=== PATIENT | female | born 1950 | race Caucasian/White ===

== ENCOUNTER 2018-03-08 06:59 | Observation (INO) | payer MEDICARE, BC ==
--- NOTE | 2018-02-24 12:04 | HP ---
HISTORY AND PHYSICAL: DATE OF ADMISSION/SURGERY: 03/08/18 DATE OF OFFICE VISIT: 02/23/18 SURGEON: Mikala Terry MD * (DICTATED BY TISH AVILA) PROCEDURE: Left total knee arthroplasty. CHIEF COMPLAINT: Left knee pain. HISTORY OF PRESENT ILLNESS: Ms. Caballero is a 68-year-old female with continued complaints of left knee pain. She has failed conservative treatment and elected to proceed with a left total knee arthroplasty. PAST MEDICAL HISTORY: Hypothyroidism and high cholesterol. PAST SURGICAL HISTORY: Right knee arthroscopy. CURRENT MEDICATIONS: 1. Synthroid 125 mcg daily. 2. Atorvastatin calcium 10 mg daily. 3. Vitamin D. 4. Vitamin B12. ALLERGIES: ACULAR and NSAIDs, causing hives. FAMILY HISTORY: Coronary artery disease, hypertension, and COPD. SOCIAL HISTORY: She is a 68-year-old female. She lives alone. She does not smoke or use drugs. Uses occasional alcohol. REVIEW OF SYSTEMS: A complete 14-point review of systems was reviewed with the patient. It was positive for hypothyroidism. She denies history of DVT, PE, hepatitis, HIV, or anesthesia problems. PHYSICAL EXAMINATION GENERAL: She is well developed, well nourished, in no acute distress. VITAL SIGNS: She stands 64 inches tall, weighs 184 pounds. Her blood pressure is 134/88, her heart rate is 76. HEENT: Normocephalic, atraumatic. NECK: Supple. No palpable lymph nodes. PULMONARY: Lungs are clear to auscultation bilaterally. CARDIAC: Regular rate and rhythm. Strong S1, S2. ABDOMEN: Soft, nontender, nondistended. NEUROLOGICAL: She is alert and oriented x3. MUSCULOSKELETAL: Left lower extremity, the skin is intact. There are no wounds or abrasions. There is a moderate joint effusion. She has some tenderness over the medial and lateral joint line. She walks with an antalgic- type gait, favoring her left leg. She has a 2+ dorsalis pedis pulse, intact sensation, and her lower extremity muscle group strengths are intact at 5/5. ASSESSMENT AND PLAN: Ms. Caballero is a 68-year-old female with continued complaints of left knee pain. She has failed conservative treatment and elected to proceed with a left total knee arthroplasty. The surgery is scheduled for 03/08/[address] Terry discussed the risks and benefits of this surgery at today's visit and all of her questions were answered. She will follow up with Dr. Terry 2 weeks after the surgery. TISH AVILA [id number]/CPS #: [id number] MTDD
[~2018-03-08 06:59] MED LIST: Acetaminophen IV 1GM/100ML * 1,000 MG/100 ML VIAL IVPB ONE; Buffered Lidocaine 1% SYRIN* 1 ML/SYRINGE INTRADERM ONE; Dexamethasone TAB* 4 MG PO ONE; Famotidine IV* 10 MG/ML 2 ML (20 mg) IV ONE; Gabapentin CAP(*) 300 MG PO ONE; Tranexamic Acid 1,000 MG in NS 0.9% 50 ML* (outpatient use) IV SCH
--- OUTSIDE RECORDS SUMMARY | 2018-03-08 07:04 | XMS REPORT | Continuity of Care Document ---
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 Maya Hanley PA-C Primary Care Physician Unavailable Payers Type Date Identification Numbers Payment Provider Subscriber Policy Number: [id number] Medicare Rand Crystal PayID: [id number] [address] [place] [address] Policy Number: [id number] [facility] Rand Crystal PayID: [id number] [address] [address] [place] [address] Advance Directives Description No Information Available Problems Date Description Provider Status Onset: 02/23/2018 Hyperlipidemia Gerson Bhatia Active M.D., [facility] Onset: 02/23/2018 Preoperative cardiovascular Gerson Bhatia Active examination Valentina, [facility] Onset: 02/23/2018 Electrocardiogram abnormal Gerson Bhatia Active M.D., [facility] Family History Date Family Member(s) Problem(s) Comments Father due to [place] () - age 54 Father due to Hypertension () Social History Type Date Description Comments Sex Unknown Diet Healthy, Well Balanced 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 Independent with all ADL's Tobacco Use Start: Unknown Never Smoked Cigarettes Smoking Status Reviewed: 02/23/18 Never Smoked Cigarettes ETOH Use Occasionally consumes alcohol Allergies, Adverse Reactions, Alerts Date Description Reaction Status Severity Comments 02/23/2018 Acular Active 02/23/2018 NSAIDs Active 03/15/2008 NKDA Inactive Medications Medication Date Status Form Strength Qnty SIG Indications Ordering Provider Vitamin E Active 1 by Unknown 00 mouth every day Vitamin D Active 1 by Unknown 00 mouth every day Lipitor Active Tablets 10mg 1 by Unknown 00 mouth every day Synthroid Active Tablets 125mcg 1 by Unknown 00 mouth every day Vitamin B-12 Active Tablets Sub 500mcg 1 by Unknown 00 mouth every day Lipitor Hx Tablets 1 by Unknown 00 mouth every day Synthroid Hx Unknown - 02/23/19 19 Multi-Vitamin Hx 1 by Unknown 00 mouth every day Immunizations Description No Information Available Vital Signs Date Vital Result Comment 02/23/2018 12:55pm BP Systolic Sitting Right Arm 130 mmHg BP Diastolic Sitting Right Arm 86 mmHg Heart Rate 72 /min Respiratory Rate 18 /min Weight 184.00 lb O2 % BldC Oximetry 97 % Ora Results Description No Information Available Procedures Date Code Description Status 02/23/2018 45975 EKG-Tracing And Report Completed Encounters Type Date Location Provider Dx Diagnosis Office Visit 02/23/2018 Cardiology Office Janeth Bhatia94.31 Abnormal 1:00p shorty Alvarez [JENNIFER] Valentina, FACC [EKG] Z01.810 Encounter for preprocedural cardiovascular examination E78.5 Hyperlipidemia, unspecified Office Visit 04/16/2008 2:45p Orthopaedic Office Janay Bianchi 845.00 Loree MD Strains Ankle Unspec Site Office Visit 03/15/2008 3:15p Orthopaedic Office Janay Bianchi 845.00 Loree MD Strains Ankle Unspec Site Office Visit 02/22/2008 10:00a Orthopaedic Office Janay Bianchi 845.00 Loree MD Strains Ankle Unspec Site Plan of Treatment Future Appointment(s):04/12/2018 1:00 pm - Juan Manuel Marks DPM at Podiatry Kqykwo0602/23/2018 - Gerson Bhatia M.D., FACCR94.31 Abnormal electrocardiogram [ECG] [EKG]New Orders:Echocardiogram, Scheduled: Lexiscan, Scheduled: 03/02/18Comments:She will have an echo to determine LVF and wall motion. In addition, she will have Lexiscan to determine if she has ischemia. She will call to discuss the results.Z01.810 Encounter for preprocedural cardiovascular examinationComments:We will complete the clearance evaluation with a Lexiscan.E78.5 Hyperlipidemia, unspecifiedComments:Will continue with statinsAllFollow up:Follow up with us on a PRN basis.
--- OUTSIDE RECORDS SUMMARY | 2018-03-08 07:04 | XMS REPORT | Continuity of Care Document ---
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 Maya Hanley PA-C Primary Care Physician Unavailable Payers Type Date Identification Numbers Payment Provider Subscriber Policy Number: [id number] Medicare Rand Crystal PayID: [id number] [address] [place] [address] Policy Number: [id number] [facility] Rand Crystal PayID: [id number] [address] [address] [place] [address] Advance Directives Description No Information Available Problems Date Description Provider Status Onset: 02/23/2018 Hyperlipidemia Gerson Bhatia Active M.D., [facility] Onset: 02/23/2018 Preoperative cardiovascular Gerson Bhatia Active examination MMaribell, FAC Onset: 02/23/2018 Electrocardiogram abnormal Gerson Bhatia Active M.D., [facility] Family History Date Family Member(s) Problem(s) Comments Father due to [place] () - age 54 Father due to [...] Available Procedures Date Code Description Status 02/23/2018 34705 EKG-Tracing And Report Completed Encounters Type Date [...] - Juan Manuel Marks DPM at Podiatry Enelpn6002/23/2018 - Gerson Bhatia M.D., [id number] Abnormal electrocardiogram [...]
--- OUTSIDE RECORDS SUMMARY | 2018-03-08 07:04 | XMS REPORT | Continuity of Care Document ---
:1950 External Reference #:[id number] Author Name Azalia Schmidt Care Team Providers Name Role Phone Bjorn Salcedo DO Primary Care Physician Unavailable Payers Type Date Identification Numbers Payment Provider Subscriber Policy Number: [id number] Medicare Beatrice Gnirsbusch PayID: [id number] [address] [place] [address] Expires: 2017 Policy Number: [id number] Medicare Beatrice Gnirsbusch PayID: [id number] [address] [place] [address] Policy Number: [id number] [facility] Rand Crystal PayID: [id number] [address] [address] [place] [address] Advance Directives Description No Information Available Problems Date Description Provider Status Onset: 08/16/2017 Localized, primary osteoarthritis Mikala Terry M.D. Active Onset: 11/03/2016 [facility] tendinitis of left shoulder Jonh Sheikh MD Active Family History Date Family Member(s) Problem(s) Comments General Heart Disease father General Hypertension father General TIAs-mother Social History Type Date Description Comments Sex Unknown Lives With Alone Occupation works on and off at [employer] ETOH Use Occasionally consumes alcohol Tobacco Use Start: Unknown End: Patient is a former smoker Unknown Smoking Status Reviewed: 02/23/18 Patient is a former smoker Exercise Type/Frequency Does not exercise Allergies, Adverse Reactions, Alerts Date Description Reaction Status Severity Comments 11/03/2016 Acular Urticaria Active Swelling eyes 12/24/2017 NSAIDS occasionally gets HIVES Active Medications Medication Date Status Form Strength Qnty SIG Indications Ordering Provider Cyclobenzaprine 02/23/ Active Tablets 10mg 90tabs take 1 Mikala HCL 2019 tab by harley Terry M.D. 2-3 times a day as needed Synthroid 00/00/ Active Tablets 124mcg 1 by Unknown 0000 mouth every day Atorvastatin 00/ Active Tablets 10mg 1 by Unknown Calcium 0000 mouth every day Vitamin D-400 00/ Active Tablets 400Unit 1 by Unknown 0000 mouth every day Bupropion HCL ER 00/ Active Tablets 150mg take 1 Unknown (Smoking Det) 0000 ER 12HR tablet by mouth once daily for 3 days then 1 tablet by mouth tw Vitamin B-12 / Active Tablets 1000mcg Unknown 0000 Ibuprofen 11/03/ Hx Tablets 600mg 90tabs 1 as Jonh 2016 - needed MD Kori 03/19/ every 8 2017 hours as needed with food Ibuprofen / Hx Tablets 600mg 90tabs 1 po Pegels, 0000 - three MD Pau 11/16/ times a 2016 day with food Medications Administered in Office Medication Date Status Form Strength Qnty SIG Indications Ordering Provider Celestone 3 mg Administered Injection Jonh and 3mg 018 MD Kori Celestone 3 mg Administered Injection Jonh and 3mg 018 MD Kori Depomedrol Administered Injection Mikala 40MG 018 Valentina Terry Depomedrol Administered Injection Mikala 40MG 018 Valentina Terry Celestone 3 mg Administered Injection Jonh and 3mg 017 MD Kori Immunizations Description No Information Available Vital Signs Date Vital Result Comment 02/23/2018 9:37am Height 64 inches 5'4" Weight 184.00 lb Heart Rate 76 /min BP Systolic 134 mmHg BP Diastolic 88 mmHg Respiratory Rate 18 /min Body Temperature 98.3 F Pain Level 4 BMI (Body Mass Index) 31.6 kg/m2 01/21/2018 9:37am Height 64.0 inches 5'4" Weight 175.00 lb BP Systolic 120 mmHg BP Diastolic 70 mmHg Pain Level 4 BMI (Body Mass Index) 30.0 kg/m2 12/24/2017 10:45am Heart Rate 80 /min BP Systolic 132 mmHg BP Diastolic 90 mmHg Respiratory Rate 18 /min Pain Level 3 10/08/2017 1:18pm Height 64 inches 5'4" Weight 175.00 lb Heart Rate 68 /min BP Systolic Sitting 124 mmHg BP Diastolic Sitting 72 mmHg Respiratory Rate 18 /min Pain Level 4 BMI (Body Mass Index) 30.0 kg/m2 09/13/2017 2:06pm Height 63.75 inches 5'3.75" Weight 175.00 lb BP Systolic 117 mmHg BP Diastolic 74 mmHg Respiratory Rate 15 /min Pain Level 2 BMI (Body Mass Index) 30.3 kg/m2 08/16/2017 1:16pm Height 63.75 inches 5'3.75" Weight 177.00 lb Heart Rate 84 /min BP Systolic Sitting 120 mmHg BP Diastolic Sitting 82 mmHg Respiratory Rate 16 /min Pain Level 2 BMI (Body Mass Index) 30.6 kg/m2 12/01/2016 10:15am Height 63.75 inches 5'3.75" Weight 185.00 lb Heart Rate 72 /min BP Systolic Sitting 108 mmHg BP Diastolic Sitting 74 mmHg Respiratory Rate 12 /min Pain Level 1 BMI (Body Mass Index) 32.0 kg/m2 11/03/2016 11:01am Height 63.75 inches 5'3.75" Weight 186.00 lb Heart Rate 85 /min BP Systolic Sitting 120 mmHg BP Diastolic Sitting 82 mmHg Respiratory Rate 16 /min Pain Level 4 O2 % BldC Oximetry 98 % BMI (Body Mass Index) 32.2 kg/m2 Results Description No Information Available Procedures Date Code Description Status 01/21/201835705 Inject/Drain Joint/Bursa Major W/O US Completed 10/08/201702325 Inject/Drain Joint/Bursa Major W/O US Completed 08/16/201709655 Inject/Drain Joint/Bursa Major W/O US Completed 11/03/2016 95318 Rad Shoulder Comp, Min. 2 Views Completed 11/03/2016 Inject/Drain Joint/Bursa Major W/O US Completed Encounters Type Date Location Provider Dx Diagnosis Office Visit 01/21/2018 Orthopedic Jayy Jaime.31 [facility] 9:15a [facility] MD tendinitis of [place] right shoulder Office Visit 12/24/2017 Orthopedic Mikala Terry, M25.561 Pain in right knee 10:45a [facility] M25.562 Pain in left knee M25.461 Effusion, right knee M25.462 Effusion, left knee M17.0 Bilateral primary osteoarthritis of knee Office Visit 10/08/2017 Orthopedic Jonh Hope.31 [facility] tendinitis 1:15p [facility] Sheikh MD of right shoulder AT [place] Office Visit 09/13/2017 Orthopedic Mikala Terry, M17.0 Bilateral primary 2:00p [facility] knee M25.462 Effusion, left knee M25.461 Effusion, right knee M25.562 Pain in left knee M25.561 Pain in right knee Office Visit 08/16/2017 1:30p [facility] Mikala Terry, M25.561 Pain in right [facility] [place] knee M25.562 Pain in left knee M25.461 Effusion, right knee M25.462 Effusion, left knee M17.0 Bilateral primary osteoarthritis of knee Office Visit 12/01/2016 9:45a [facility]opedic Jonh Hope.[place] [facility] Sheikh MD tendinitis of AT [place] left shoulder Office Visit 11/03/2016 10:30a Orthopedic Jonh Cabrera [facility] She[facility] MD tendinitis of AT [place] left shoulder M25.512 Pain in left shoulder Plan of Treatment Future Appointment(s):03/21/2018 2:00 pm - Mikala Terry M.D. at [facility]03/08/2018 11:00 am - JUSTUS Epstein at [facility]03/08/2018 11:00 am - TISH Bishop at [facility]03/08/2018 11:00 am - Mikala Terry M.D. at [facility]02/23/2018 - Mikala Terry M.D.M25.562 Pain in left kneeFollow up:Follow up: 2 weeks after iuimlupV59.462 Effusion, left kneeM17.0 Bilateral primary osteoarthritis of knee
--- OUTSIDE RECORDS SUMMARY | 2018-03-08 07:04 | XMS REPORT | Continuity of Care Document ---
:1950 External Reference #:[id number] Author Name Maya Hanley PA Address [address] [place] [address] Care Team Providers Name Role Phone Maya Hanley PA Care Team Information [employer] Unavailable Payers Type Date Identification Numbers Payment Provider Subscriber Effective: Policy Number: [id number] Medicare Rnad Crystal 2015 Group Name: [facility] [address] PayID: [id number] [place] [address] Effective: 2011 [facility]: [facility] Rand Crystal [id number] PayID: [id number] [address] [address] [place] [address] Advance Directives Description No Information Available Problems Date Description Provider Status Onset: 03/05/2010 Vitamin D deficiency Bjorn Salcedo DO Active Onset: 05/06/2004 Hypothyroidism Bjorn Salcedo DO Active Onset: 05/06/2004 Female climacteric state Bjorn Salcedo DO Active Onset: 05/06/2004 Mixed hyperlipidemia Bjorn Salcedo DO Active Family History Date Family Member(s) Problem(s) Comments Father due to Age 55 CAD/[place] () Mother due to Age 84 COPD/Emphysema () Social History Type Date Description Comments Sex Unknown Marital Status Single Lives With Alone 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 Remove with alcohol every 7 days Levothyroxine 06/17/ Active Tablets 125mcg 90tabs 1 by mouth E03.9 Moreno, Sodium 2018 every day DO Ankur Vitamin D 05/07/ Active Tablets 1000Unit 1 by mouth E55.9 Matias, 2015 every day DO Bjorn Atorvastatin 04/19/ Active Tablets 10mg 90tabs Take 1 E78.2 Josh Calcium 2015 Tablet Ankur, Daily DO Ibuprofen / Active Tablets 600mg one by Unknown 0000 mouth every 8 hours as needed with food Celecoxib 12/21/ Hx Capsules 100mg 60caps take one M25.511 Josh 2017 - capsule by Ankur, 02/21/ mouth DO 2018 twice daily as needed for pains Bupropion HCL 06/17/ Hx Tablets ER 150mg 177tab 1 tablet F17.210 Josh, ER (Smoking 2018 - 12HR s by mouth Ankur Det) 12/21/ once daily DO 2017 for 3 days then 1 tablet twice daily Levothyroxine 12/18/ Hx Tablets 112mcg 90tabs 1 by mouth E03.9 Moreno, Sodium 2015 - every day Ankur 06/17/ DO 2017 Nabumetone 05/07/ Hx Tablets 750mg 60tabs 1 by mouth M17.9 Matias, 2015 - twice a Bjorn, 06/16/ day with DO 2016 food Levothyroxine 06/14/ Hx Tablets 100mcg 90tabs 1 by mouth Matias, Sodium 2014 - every day Bjorn, 2015 Levothyroxine 04/19/ Hx Tablets 88mcg 90tabs 1 by mouth Matias, Sodium 2014 - every day Bjorn, 06/14/ DO 2014 Meclizine HCL 01/25/ Hx Tablets 25mg 60tabs 1 po q 8 Matias, 2012 - hours prn Bjorn 06/14/ dizziness DO 2014 Zostavax 12/06/ Hx Solution [id number] 1units use as Matias, 2011 - Rec .65ML directed Bjorn, 2015 Immunizations CPT Code Status Date Vaccine Reaction Lot # [id number] Given 12/21/2017 Flu Vaccine NOS [id number] Given 06/17/2017 Pneumococcal 23 Immunization [id number] Adult Or Immunosuppressed Patient [address]47[address] Given 01/29/2017 Fluzone Highdose Age 65 And [facility] [place] [address] Given 01/15/2016 Fluzone Highdose Age 65 And Given At Pharmacy Over Preservative & RA/ Antibiotic Free [id number] Given 12/19/2015 Prevnar 13 Pneumococal Im inj completed [id number] Conjugate Vaccine [id number] Given 01/03/2015 Afluria Imunization Given At Pharmacy [facility] 77160 Given 01/03/2015 Zoster (Zostavax) Given At Pharmacy [facility] [address]75 Given 03/03/2013 Tdap (Adacel) Ages 7 And RECEIVED AT ER IN Above Only [place] WHEN PT CUT FINGER. [address] Given 12/06/2012 Afluria Or Fluvirin Flu Vac Intramuscular 78233 Given 12/07/2011 Afluria Or Fluvirin Flu Vac Intramuscular 97968 Refused 12/21/2017 Influenza Vac, Quadrivalent, Split, 0.5mL Dosage, Im Use Vital Signs Date Vital Result Comment 02/21/2018 10:51am Body Temperature 98.4 F Weight 187.00 lb Heart Rate 62 /min BP Systolic 138 mmHg BP Diastolic 80 mmHg Respiratory Rate 18 /min Height 63.75 inches 5'3.75" 06/17/17 SA O2 % BldC Oximetry 97 % BMI (Body Mass Index) 32.3 kg/m2 12/21/2017 9:04am Weight 183.00 lb Heart Rate 72 /min BP Systolic 122 mmHg BP Diastolic 74 mmHg Respiratory Rate 18 /min Height 63.75 inches 5'3.75" 06/17/17 SA BMI (Body Mass Index) 31.7 kg/m2 10/12/2017 11:04am Weight 173.00 lb Heart Rate 74 /min BP Systolic 114 mmHg BP Diastolic 74 mmHg Respiratory Rate 18 /min Height 63.75 inches 5'3.75" 06/17/17 SA BMI (Body Mass Index) 29.9 kg/m2 06/17/2017 8:58am Weight 180.00 lb Heart Rate 72 /min BP Systolic 114 mmHg BP Diastolic 78 mmHg Respiratory Rate 18 /min Height 63.75 inches 5'3.75" 06/17/16 BMI (Body Mass Index) 31.1 kg/m2 12/18/2016 8:45am Weight 187.00 lb Heart Rate 68 /min BP Systolic 112 mmHg BP Diastolic 70 mmHg Respiratory Rate 18 /min Height 63.75 inches 5'3.75" 06/17/16 BMI (Body Mass Index) 32.3 kg/m2 10/26/2016 3:59pm Weight 185.00 lb Heart Rate 76 /min BP Systolic 126 mmHg BP Diastolic 74 mmHg Respiratory Rate 16 /min Height 63.75 inches 5'3.75" 06/17/16 BMI (Body Mass Index) 32.0 kg/m2 06/17/2016 9:19am Weight 183.44 lb Heart Rate 76 /min 72 Reg BP Systolic 114 mmHg BP Diastolic 74 mmHg BP Systolic Recheck 118 mmHg BP Diastolic Recheck 78 mmHg Respiratory Rate 16 /min Height 63.75 inches 5'3.75" 06/17/16 BMI (Body Mass Index) 31.7 kg/m2 12/19/2015 8:39am Weight 175.00 lb Heart Rate 66 /min 68 Reg BP Systolic 120 mmHg BP Diastolic 78 mmHg BP Systolic Recheck 120 mmHg BP Diastolic Recheck 72 mmHg Respiratory Rate 18 /min Height 64 inches 5'4" BMI (Body Mass Index) 30.0 kg/m2 06/17/2015 8:16am Weight 180.00 lb Heart Rate 72 /min 72 Reg BP Systolic 110 mmHg BP Diastolic 72 mmHg BP Systolic Recheck 110 mmHg BP Diastolic Recheck 72 mmHg Respiratory Rate 18 /min Height 63.5 inches 5'3.50" BMI (Body Mass Index) 31.4 kg/m2 05/08/2015 9:33am Weight 179.00 lb Heart Rate 78 /min BP Systolic 110 mmHg BP Diastolic 82 mmHg Respiratory Rate 18 /min 12/14/2014 8:30am Weight 180.00 lb Heart Rate 60 /min 64 Reg BP Systolic 110 mmHg BP Diastolic 70 mmHg BP Systolic Recheck 110 mmHg BP Diastolic Recheck 70 mmHg Respiratory Rate 18 /min Height 63.5 inches 5'3.50" BMI (Body Mass Index) 31.4 kg/m2 06/14/2014 9:40am Weight 182.00 lb Heart Rate 78 /min 78 Reg BP Systolic 110 mmHg BP Diastolic 76 mmHg BP Systolic Recheck 110 mmHg BP Diastolic Recheck 78 mmHg Respiratory Rate 18 /min Height 63.5 inches 5'3.50" BMI (Body Mass Index) 31.7 kg/m2 12/15/2013 10:10am BP Systolic 130 mmHg BP Diastolic 80 mmHg 12/15/2013 10:10am Weight 175.00 lb Heart Rate 72 /min 72 Reg BP Systolic 130 mmHg BP Diastolic 82 mmHg Respiratory Rate 18 /min 10/06/2013 8:29am Body Temperature 97.7 F Weight 177.44 lb Heart Rate 66 /min BP Systolic 110 mmHg BP Diastolic 74 mmHg Respiratory Rate 18 /min 06/30/2013 2:45pm Body Temperature 97.8 F Weight 179.00 lb Heart Rate 70 /min BP Systolic 118 mmHg BP Diastolic 70 mmHg Respiratory Rate 18 /min Height 63.75 inches 5'3.75" O2 % BldC Oximetry 98 % Results Test Date Facility Test Result H/L Range Note Laboratory test finding 02/21/2018 [facility] Troponin I- RL <pending> CPK <pending> Laboratory test 02/21/2018 [facility] Urine Culture <pending> finding Laboratory test 12/16/2017 [facility] Hepatitis C NON REACTIVE Non Reactive 1, 2 finding Virus Antibody S/[facility] Lipid Treatment 12/16/2017 [facility] Cholesterol 214 mg/dL High 50-199 Triglycerides 98 mg/dL 30-200 HDL 77 mg/dL 35-85 3 Chol/ HDL Ratio 2.8 ratio Low 3.7-5.6 VLDL 20 mg/dL 2-29 LDL (Calc) 117 mg/dL High 20-99 4 Alt 20 U/L 3-42 Ast 19 U/L 8-42 Basic (BMP) 12/16/2017 [facility] Sodium 143 mmol/L 135-146 5 Potassium 4.6 mmol/L 3.5-5.2 Chloride# 102 mmol/L 97-110 6 Carbon Dioxide 31 mmol/L 24-34 Glucose 95 mg/dL 70-105 BUN 20 mg/dL 6-26 Creatinine 0.8 mg/dL 0.5-1.4 Calcium 9.5 mg/dL 8.5-10.2 Non Kendra Egfr >60 >60 7 Kendra Egfr >60 >60 8 Anion Gap 10 mmol/L 5-15 9 CBC with Auto Diff-fcmg 12/16/2017 [facility] WBC 5.5 K/uL 4.1-11.0 RBC 4.94 M/uL 4.00-5.40 Hemoglobin 14.8 gm/dL 12.0-16.0 Hematocrit 44.6 % 36.0-47.0 MCV 90.1 fL 80.0-97.0 MCH 29.9 pg 27.0-32.0 MCHC 33.1 g/dL 32.0-36.0 RDW 13.7 % 11.5-14.5 PLT Count 325 K/ul 140-400 MPV 9.3 FL 7.1-10.7 Neutrophil 45.9 % 35.0-75.0 Lymphocyte 39.1 % 16.0-52.0 Monocyte 10.4 % High 2.0-10.0 Eosinophil 3.9 % 0.0-5.0 Basophil 0.7 % 0.0-4.0 Abs Neutrophils 2.5 K/uL 2.1-8.0 Abs Lymphocytes 2.2 K/uL 0.8-5.5 Abs Monocytes 0.6 K/uL 0.1-1.0 Abs Eosinophils 0.2 K/uL 0.0-0.5 Abs Basophils 0.0 K/uL 0.0-0.3 Laboratory test finding 12/16/2017 [facility] TSH 1.67 uIU/mL 0.35-4.94 Vitamin D 25 Hydroxy 43 ng/mL 30-100 10 Laboratory test finding 08/16/2017 [facility] TSH 0.64 uIU/mL 0.35-4.94 11 Free T4 1.13 ng/dL 0.70-1.48 Laboratory test finding 06/11/2017 [facility] TSH 5.74 uIU/mL High 0.35- 4.94 Free T4 1.00 ng/dL 0.70-1.48 Vitamin D 25 Hydroxy 24 ng/mL Low 30-100 12 Lipid 06/11/2017 [facility] Cholesterol 179 mg/dL 50-199 Triglycerides 99 mg/dL 30-200 HDL 61 mg/dL 35-85 13 Chol/ HDL Ratio 3.0 ratio Low 3.7-5.6 VLDL 20 mg/dL 2-29 LDL (Calc) 99 mg/dL 20-99 14 CBC With Auto Diff 06/11/2017 [facility] WBC 6.5 K/uL 4.1-11.0 RBC 4.69 M/uL 4.00-5.40 Hemoglobin 13.8 gm/dL 12.0-16.0 Hematocrit 41.7 % 36.0-47.0 MCV 88.8 fL 80.0-97.0 MCH 29.4 pg 27.0-32.0 MCHC 33.1 g/dL 32.0-36.0 RDW 13.7 % 11.5-14.5 PLT Count 260 K/ul 140-400 MPV 10.2 FL 7.1-10.7 Neutrophil 42.8 % 35.0-75.0 Lymphocyte 40.4 % 16.0-52.0 Monocyte 9.4 % 2.0-10.0 Eosinophil 6.6 % High 0.0-5.0 Basophil 0.8 % 0.0-4.0 Abs Neutrophils 2.8 K/uL 2.1-8.0 Abs Lymphocytes 2.6 K/uL 0.8-5.5 Abs Monocytes 0.6 K/uL 0.1-1.0 Abs Eosinophils 0.4 K/uL 0.0-0.5 Abs Basophils 0.1 K/uL 0.0-0.3 Comprehensive Met Panel-FCMG 06/11/2017 [facility] Sodium 141 mmol/L 135- 146 15 Potassium 4.1 mmol/L 3.5-5.2 Chloride# 101 mmol/L 97-110 16 Carbon Dioxide 30 mmol/L 24-34 Glucose 89 mg/dL 70-105 BUN 14 mg/dL 6-26 Creatinine 0.7 mg/dL 0.5-1.4 Calcium 9.0 mg/dL 8.5-10.2 Total Protein 6.4 g/dL 6.0-8.0 Albumin 4.0 g/dL 3.6-4.9 Globulin 2.4 g/dL 2.0-3.5 A/G Ratio 1.7 Ratio 1.0-2.2 Total Bilirubin 0.4 mg/dL 0.1-1.3 Alkaline Phosphatase 48 U/L 24-140 Alt 11 U/L 3-42 Ast 14 U/L 8-42 Kendra Egfr >60 >60 17 Non Kendra Egfr >60 >60 18 Anion Gap 10 mmol/L 5-15 19 Comprehensive Met Panel-FCMG 12/11/2016 [facility] Sodium 143 mmol/L 135- 146 20 Potassium 4.2 mmol/L 3.5-5.2 Chloride# 106 mmol/L 97-110 21 Carbon Dioxide 24 mmol/L 24-34 Glucose 98 mg/dL 70-105 Creatinine 0.7 mg/dL 0.5-1.4 Calcium 9.3 mg/dL 8.5-10.2 Total Protein 7.1 g/dL 6.0-8.0 Albumin 4.1 g/dL 3.6-4.9 Globulin 3.0 g/dL 2.0-3.5 A/G Ratio 1.4 Ratio 1.0-2.2 Total Bilirubin 0.4 mg/dL 0.1-1.3 Alkaline Phosphatase 57 U/L 24-140 Alt 15 U/L 3-42 Ast 18 U/L 8-42 Kendra Egfr >60 >60 22 Non Kendra Egfr >60 >60 23 Anion Gap 13 mmol/L 7-16 24 BUN 16 mg/dL 6-26 CBC With Auto Diff 12/11/2016 [facility] WBC 6.7 K/uL 4.1-11.0 RBC 4.92 M/uL 4.00-5.40 Hemoglobin 14.7 gm/dL 12.0-16.0 Hematocrit 44.5 % 36.0-47.0 MCV 90.5 fL 80.0-97.0 MCH 29.9 pg 27.0-32.0 MCHC 33.0 g/dL 32.0-36.0 RDW 13.8 % 11.5-14.5 PLT Count 260 K/ul 140-400 MPV 10.2 FL 7.1-10.7 Neutrophil 49.5 % 35.0-75.0 Lymphocyte 35.5 % 16.0-52.0 Monocyte 10.5 % High 2.0-10.0 Eosinophil 3.7 % 0.0-5.0 Basophil 0.8 % 0.0-4.0 Abs Neutrophils 3.3 K/uL 2.1-8.0 Abs Lymphocytes 2.4 K/uL 0.8-5.5 Abs Monocytes 0.7 K/uL 0.1-1.0 Abs Eosinophils 0.3 K/uL 0.0-0.5 Abs Basophils 0.1 K/uL 0.0-0.3 Lipid 12/11/2016 [facility] Cholesterol 191 mg/dL 50-199 Triglycerides 138 mg/dL 30-150 HDL 71 mg/dL 45-85 25 Chol/ HDL Ratio 2.7 ratio Low 3.7-5.6 VLDL 28 mg/dL 2-29 LDL (Calc) 92 mg/dL 20-99 26 Laboratory test finding 12/11/2016 [facility] TSH 1.84 uIU/mL 0.35-4.94 Free T4 1.06 ng/dL 0.70-1.48 Vit D25oh 34 ng/mL 31-100 Laboratory test finding 06/02/2016 [facility] TSH 3.15 uIU/mL 0.35-4.94 Free T4 0.85 ng/dL 0.70-1.48 Vit D,25 Hydroxy 29 ng/mL Low 30-100 Comprehensive Metabolic (CMP) 06/02/2016 [facility] Sodium 141 mmol/L 135- 146 27 Potassium 5.7 No visible h <SEE NOTE> mmol/L High 3.5-5.2 28 Chloride# 106 mmol/L 97-110 29 Carbon Dioxide 31 mmol/L 24-34 Glucose 94 mg/dL 70-105 BUN 18 mg/dL 6-26 Creatinine 0.7 mg/dL 0.5-1.4 Calcium 9.3 mg/dL 8.5-10.2 Total Protein 6.7 g/dL 6.0-8.0 Albumin 4.2 g/dL 3.6-4.9 Globulin 2.5 g/dL 2.0-3.5 A/G Ratio 1.7 Ratio 1.0-2.2 Total Bilirubin 0.4 mg/dL 0.1-1.3 Alkaline Phosphatase 47 U/L 24-140 Alt 13 U/L 3-42 Ast 15 U/L 8-42 Kendra Egfr >60 >60 30 Non Kendra Egfr >60 >60 31 Anion Gap 10 mmol/L 7-16 32 Lipid 06/02/2016 [facility] Cholesterol 218 mg/dL High 50-199 Triglycerides 84 mg/dL 30-150 HDL 75 mg/dL 45-85 33 Chol/ HDL Ratio 2.9 ratio Low 3.7-5.6 VLDL 17 mg/dL 2-29 LDL (Calc) 126 mg/dL 20-129 34 CBC With Auto Diff 06/02/2016 [facility] WBC 5.4 K/uL 4.1-11.0 RBC 4.81 M/uL 4.00-5.40 Hemoglobin 14.2 gm/dL 12.0-16.0 Hematocrit 43.6 % 36.0-47.0 MCV 90.8 fL 80.0-97.0 MCH 29.6 pg 27.0-32.0 MCHC 32.6 g/dL 32.0-36.0 RDW 13.9 % 11.5-14.5 PLT Count 247 K/ul 140-400 Neutrophil 50.2 % 35.0-75.0 Lymphocyte 34.3 % 16.0-52.0 Monocyte 9.8 % 2.0-10.0 Eosinophil 4.9 % 0.0-5.0 Basophil 0.8 % 0.0-4.0 Abs Neutrophils 2.7 K/uL 2.1-8.0 Abs Lymphocytes 1.8 K/uL 0.8-5.5 Abs Monocytes 0.5 K/uL 0.1-1.0 Abs Eosinophils 0.3 K/uL 0.0-0.5 Abs Basophils 0.0 K/uL 0.0-0.3 Laboratory test finding 12/12/2015 [facility] TSH 5.31 uIU/mL High 0.35- 4.94 Free T4 1.00 ng/dL 0.70-1.48 Vit D,25 Hydroxy 32 ng/mL 31-100 Comprehensive Metabolic (CMP) 12/12/2015 [facility] Sodium 140 mmol/L 134- 142 Potassium 4.7 mmol/L 3.5-5.2 Chloride 105 mmol/L 97-109 Carbon Dioxide 31 mmol/L 24-34 Glucose 103 mg/dL 70-105 BUN 17 mg/dL 6-26 Creatinine 0.7 mg/dL 0.5-1.4 Calcium 9.3 mg/dL 8.5-10.2 Total Protein 6.9 g/dL 6.0-8.0 Albumin 4.1 g/dL 3.6-4.9 Globulin 2.8 g/dL 2.0-3.5 A/G Ratio 1.5 Ratio 1.0-2.2 Total Bilirubin 0.5 mg/dL 0.1-1.3 Alkaline Phosphatase 43 U/L 24-140 Alt 11 U/L 3-42 Ast 15 U/L 8-42 Anion Gap 9 mmol/L 6-14 Kendra Egfr >60 >60 35 Non Kendra Egfr >60 >60 36 Lipid 12/12/2015 [facility] Cholesterol 190 mg/dL 50-199 Triglycerides 98 mg/dL 30-150 HDL 67 mg/dL 45-85 37 Chol/ HDL Ratio 2.8 ratio Low 3.7-5.6 VLDL 20 mg/dL 2-29 LDL (Calc) 103 mg/dL 20-129 38 Laboratory test finding 06/11/2015 [facility] TSH 3.79 uIU/mL 0.35-4.94 Free T4 0.96 ng/dL 0.70-1.48 Vit D,25 Hydroxy 41 ng/mL 31-100 Comprehensive Metabolic (CMP) 06/11/2015 [facility] Sodium 138 mmol/L 134- 142 Potassium 4.5 mmol/L 3.5-5.2 Chloride 104 mmol/L 97-109 Carbon Dioxide 30 mmol/L 24-34 Glucose 99 mg/dL 70-105 BUN 18 mg/dL 6-26 Creatinine 0.7 mg/dL 0.5-1.4 Calcium 9.2 mg/dL 8.5-10.2 Total Protein 7.0 g/dL 6.0-8.0 Albumin 4.0 g/dL 3.6-4.9 Globulin 3.0 g/dL 2.0-3.5 A/G Ratio 1.3 Ratio 1.0-2.2 Total Bilirubin 0.4 mg/dL 0.1-1.3 Alkaline Phosphatase 49 U/L 24-140 Alt 9 U/L 3-42 Ast 14 U/L 8-42 Anion Gap 9 mmol/L 6-14 Kendra Egfr >60 >60 39 Non Kendra Egfr >60 >60 40 Lipid 06/11/2015 [facility] Cholesterol 187 mg/dL 50-199 Triglycerides 126 mg/dL 30-150 HDL 66 mg/dL 45-85 41 Chol/ HDL Ratio 2.8 ratio Low 3.7-5.6 VLDL 25 mg/dL 2-29 LDL (Calc) 96 mg/dL 20-99 42 Laboratory test 05/09/2015 [facility] Polyp Colon And/Or See Note 43 finding (315)- - Rectum Lipid Treatment 12/07/2014 [facility] Cholesterol 183 mg/dL 50-199 Triglycerides 103 mg/dL 30-150 HDL 63 mg/dL 45-85 44 Chol/ HDL Ratio 2.9 ratio Low 3.7-5.6 VLDL 21 mg/dL 2-29 LDL (Calc) 99 mg/dL 20-99 45 Alt 11 U/L 3-42 Ast 15 U/L 8-42 Laboratory test finding 12/07/2014 [facility] TSH 2.12 uIU/mL 0.35-4.94 Free T4 1.03 ng/dL 0.70-1.48 Vit D,25 Hydroxy 52 ng/mL 31-100 Laboratory test finding 06/07/2014 [facility] Vit D,25 Hydroxy 45 ng/mL 31- 100 Lipid Treatment 06/07/2014 [facility] Cholesterol 199 mg/dL 50-199 Triglycerides 131 mg/dL 30-150 HDL 60 mg/dL 45-85 46 Chol/ HDL Ratio 3.3 ratio Low 3.7-5.6 VLDL 26 mg/dL 2-29 LDL (Calc) 113 mg/dL 20-129 47 Alt 11 U/L 3-42 Ast 16 U/L 8-42 Laboratory test finding 06/07/2014 [facility] TSH 6.47 uIU/mL High 0.34- 5.60 Free T4 0.82 ng/dL 0.50-1.60 Lipid Panel 11/30/2013 N2N/CCD Import Chol/HDL Ratio 2.8 ratio Cholesterol 179.0 mg/dL 50.0-199.0 HDL 63.0 mg/dL 45.0-86.0 LDL, Calculated 98.0 mg/dL 20.0-129.0 Triglycerides 90.0 mg/dL 30.0-150.0 vLDL 18.0 ng/dL Laboratory test finding 11/30/2013 N2N/CCD Import Alt 6.0 U/L Low 9.0- 52.0 Ast 16.0 U/L 14.0-36.0 FT4 1.07 ng/dL 0.75-1.54 TSH 4.34 uIU/ml 0.50-6.00 Vitamin D 34.0 ng/mL 30.0-100.0 Laboratory test finding 10/06/2013 N2N/CCD Import Urine Culture See Note 48 Lipid Panel 05/30/2013 N2N/CCD Import Chol/HDL Ratio 3.2 ratio Cholesterol 206.0 mg/dL High 50.0-199.0 HDL 65.0 mg/dL 45.0-86.0 LDL, Calculated 123.2 mg/dL 20.0-129.0 Triglycerides 89.0 mg/dL 30.0-150.0 vLDL 17.8 ng/dL Laboratory test 05/30/2013 N2N/CCD Import C-Reactive < 2.9 mg/L 0.0-4.9 finding Protein,Quant CCP Igg/Iga Antibodies 9 units 0-19 49 Rheumatoid Factor Screen Negative Negative Uric Acid 4.4 mg/dL 2.1-7.4 Antinuclear 05/30/2013 N2N/CCD Import Antinuclear See patterns . 50 Antibodies, Ifa Antibodies, Ifa Note See Note 51 Speckled Pattern 1:160 High . Laboratory test finding 05/30/2013 N2N/CCD Import Alt 12.0 U/L 9.0-52.0 Ast 17.0 U/L 14.0-36.0 Esr Sedrate 13.0 sec 0.0-25.0 FT4 0.92 ng/dL 0.75-1.54 TSH 3.87 uIU/ml 0.50-6.00 Vitamin D 32.5 ng/mL 30.0-100.0 Antinuclear 11/29/2012 N2N/CCD Import Antinuclear See patterns . 52 Antibodies, Ifa Antibodies, Ifa Note See Note 53 Speckled Pattern 1:80 . Laboratory test finding 11/29/2012 N2N/CCD Import Alt 12.0 U/L 9.0-52.0 Ast 19.0 U/L 14.0-36.0 FT4 0.91 ng/dL 0.75-1.54 TSH 6.99 uIU/ml High 0.50-6.00 Vitamin D 30.7 ng/mL 30.0-100.0 Lipid Panel 11/29/2012 N2N/CCD Import Chol/HDL Ratio 2.9 ratio Cholesterol 209.0 mg/dL High 50.0-199.0 HDL 72.0 mg/dL 45.0-86.0 LDL, Calculated 115.4 mg/dL 20.0-129.0 Triglycerides 108.0 mg/dL 30.0-150.0 vLDL 21.6 ng/dL 1 Dec lab order SCHEDULE 1 WEEK PRIOR TO NEXT VISIT 2 S/CO Ratio >/=1.0 is REACTIVE. S/CO <5.0 is Low Reactive. S/CO >/= 5.0 is High Reactive. Effective Oct 09, 2016 all anti-HCV reactive samples are sent for quantitative PCR confirmation. 3 Per NCEP ATP III Guidelines: Results lower than 40 mg/dL are suggestive of increased risk for coronary artery disease. Results > or=to 60 mg/dL are considered a negative risk factor. 4 Per NCEP ATP III Guidelines: Normal Population <130 Patients with medical conditions: CHD/DM Optimal: <100 Borderline high: 130-159 High: 160-189 Very high: >189 5 Updated reference range on new analyzer 6 Updated reference range on new analyzer 7 Concerning GFR Guidelines: Normal function or mild renal disease, if clinically at risk: >/=60 mL/min Moderately decreased: 30-59 Severely decreased: 15-29 Renal failure: <15 Glomerular Filtration Rate (GFR) is estimated based on the MDRD equation, which assumes a steady state for creatinine as recommended by the National Kidney Disease Education Program in conjunction with the National Institutes of Health and the National Kidney Foundation. Clinical conditions in which it may be necessary to measure GFR by using clearance methods include extremes of age and body size, severe malnutrition or obesity, diseases of skeletal muscle, paraplegia or quadriplegia, vegetarian diet, rapidly changing kidney function, and calculation of the dose of potentially toxic drugs that are excreted by the kidneys. 8 Concerning GFR Guidelines for Americans: Normal function or mild renal disease, if clinically at risk: >/=60 mL/min Moderately decreased: 30-59 Severely decreased: 15-29 Renal failure: <15 9 Updated Reference Range 10 Clinical Guidelines for recommended serum 25(OH)Vitamin D Deficient at less than 20 ng/mL Insufficient at 20 to <30 ng/mL Sufficient at 30-100 ng/mL Toxicity at greater than 100 ng/mL 11 SCHEDULE 1 WEEK PRIOR TO NEXT VISIT 12 Clinical Guidelines for recommended serum 25(OH)Vitamin D Deficient at less than 20 ng/mL Insufficient at 20 to <30 ng/mL Sufficient at 30-100 ng/mL Toxicity at greater than 100 ng/mL 13 Per NCEP ATP III Guidelines: Results lower than 40 mg/dL are suggestive of increased risk for coronary artery disease. Results > or=to 60 mg/dL are considered a negative risk factor. 14 Per NCEP ATP III Guidelines: Normal Population <130 Patients with medical conditions: CHD/DM Optimal: <100 Borderline high: 130-159 High: 160-189 Very high: >189 15 Updated reference range on new analyzer 16 Updated reference range on new analyzer 17 Concerning GFR Guidelines for Americans: Normal function or mild renal disease, if clinically at risk: >/=60 mL/min Moderately decreased: 30-59 Severely decreased: 15-29 Renal failure: <15 18 Concerning GFR Guidelines: Normal function or mild renal disease, if clinically at risk: >/=60 mL/min Moderately decreased: 30-59 Severely decreased: 15-29 Renal failure: <15 Glomerular Filtration Rate (GFR) is estimated based on the MDRD equation, which assumes a steady state for creatinine as recommended by the National Kidney Disease Education Program in conjunction with the National Institutes of Health and the National Kidney Foundation. Clinical conditions in which it may be necessary to measure GFR by using clearance methods include extremes of age and body size, severe malnutrition or obesity, diseases of skeletal muscle, paraplegia or quadriplegia, vegetarian diet, rapidly changing kidney function, and calculation of the dose of potentially toxic drugs that are excreted by the kidneys. 19 Updated Reference Range 20 Updated reference range on new analyzer 21 Updated reference range on new analyzer 22 Concerning GFR Guidelines for Americans: Normal function or mild renal disease, if clinically at risk: >/=60 mL/min Moderately decreased: 30-59 Severely decreased: 15-29 Renal failure: <15 23 Concerning GFR Guidelines: Normal function or mild renal disease, if clinically at risk: >/=60 mL/min Moderately decreased: 30-59 Severely decreased: 15-29 Renal failure: <15 Glomerular Filtration Rate (GFR) is estimated based on the MDRD equation, which assumes a steady state for creatinine as recommended by the National Kidney Disease Education Program in conjunction with the National Institutes of Health and the National Kidney Foundation. Clinical conditions in which it may be necessary to measure GFR by using clearance methods include extremes of age and body size, severe malnutrition or obesity, diseases of skeletal muscle, paraplegia or quadriplegia, vegetarian diet, rapidly changing kidney function, and calculation of the dose of potentially toxic drugs that are excreted by the kidneys. 24 Updated reference range on new analyzer 25 Per NCEP ATP III Guidelines: Results lower than 40 mg/dL are suggestive of increased risk for coronary artery disease. Results > or=to 60 mg/dL are considered a negative risk factor. 26 Per NCEP ATP III Guidelines: Normal Population <130 Patients with medical conditions: CHD/DM Optimal: <100 Borderline high: 130-159 High: 160-189 Very high: >189 27 Updated reference range on new analyzer 28 5.7 No visible hemolysis. 29 Updated reference range on new analyzer 30 Concerning GFR Guidelines for Americans: Normal function or mild renal disease, if clinically at risk: >/=60 mL/min Moderately decreased: 30-59 Severely decreased: 15-29 Renal failure: <15 31 Concerning GFR Guidelines: Normal function or mild renal disease, if clinically at risk: >/=60 mL/min Moderately decreased: 30-59 Severely decreased: 15-29 Renal failure: <15 Glomerular Filtration Rate (GFR) is estimated based on the MDRD equation, which assumes a steady state for creatinine as recommended by the National Kidney Disease Education Program in conjunction with the National Institutes of Health and the [employer] Kidney [employer]. Clinical conditions in which it may be necessary to measure GFR by using clearance methods include extremes of age and body size, severe malnutrition or obesity, diseases of skeletal muscle, paraplegia or quadriplegia, vegetarian diet, rapidly changing kidney function, and calculation of the dose of potentially toxic drugs that are excreted by the kidneys. 32 Updated reference range on new analyzer 33 Per NCEP ATP III Guidelines: Results lower than 40 mg/dL are suggestive of increased risk for coronary artery disease. Results > or=to 60 mg/dL are considered a negative risk factor. 34 Per NCEP ATP III Guidelines: Normal Population <130 Patients with medical conditions: CHD/DM Optimal: <100 Borderline high: 130-159 High: 160-189 Very high: >189 35 Concerning GFR Guidelines for Americans: Normal function or mild renal disease, if clinically at risk: >/=60 mL/min Moderately decreased: 30-59 Severely decreased: 15-29 Renal failure: <15 36 Concerning GFR Guidelines: Normal function or mild renal disease, if clinically at risk: >/=60 mL/min Moderately decreased: 30-59 Severely decreased: 15-29 Renal failure: <15 Glomerular Filtration Rate (GFR) is estimated based on the MDRD equation, which assumes a steady state for creatinine as recommended by the National Kidney Disease Education Program in conjunction with the National Institutes of Health and the National Kidney Foundation. Clinical conditions in which it may be necessary to measure GFR by using clearance methods include extremes of age and body size, severe malnutrition or obesity, diseases of skeletal muscle, paraplegia or quadriplegia, vegetarian diet, rapidly changing kidney function, and calculation of the dose of potentially toxic drugs that are excreted by the kidneys. 37 Per NCEP ATP III Guidelines: Results lower than 40 mg/dL are suggestive of increased risk for coronary artery disease. Results > or=to 60 mg/dL are considered a negative risk factor. 38 Per NCEP ATP III Guidelines: Normal Population <130 Patients with medical conditions: CHD/DM Optimal: <100 Borderline high: 130-159 High: 160-189 Very high: >189 39 Concerning GFR Guidelines for Americans: Normal function or mild renal disease, if clinically at risk: >/=60 mL/min Moderately decreased: 30-59 Severely decreased: 15-29 Renal failure: <15 40 Concerning GFR Guidelines: Normal function or mild renal disease, if clinically at risk: >/=60 mL/min Moderately decreased: 30-59 Severely decreased: 15-29 Renal failure: <15 Glomerular Filtration Rate (GFR) is estimated based on the MDRD equation, which assumes a steady state for creatinine as recommended by the National Kidney Disease Education Program in conjunction with the National Institutes of Health and the National Kidney Foundation. Clinical conditions in which it may be necessary to measure GFR by using clearance methods include extremes of age and body size, severe malnutrition or obesity, diseases of skeletal muscle, paraplegia or quadriplegia, vegetarian diet, rapidly changing kidney function, and calculation of the dose of potentially toxic drugs that are excreted by the kidneys. 41 Per NCEP ATP III Guidelines: Results lower than 40 mg/dL are suggestive of increased risk for coronary artery disease. Results > or=to 60 mg/dL are considered a negative risk factor. 42 Per NCEP ATP III Guidelines: Normal Population <130 Patients with medical conditions: CHD/DM Optimal: <100 Borderline high: 130-159 High: 160-189 Very high: >189 43 OPERATION/PROCEDURE Colonoscopy with polypectomy. DIAGNOSIS: "COLON, SIGMOID, BIOPSY": - HYPERPLASTIC POLYPS. /[facility] 0927 GROSS Received in formalin in a properly labeled container with the patient's name and accession number designated, "SIGMOID POLYPS". The specimen consists of multiple pieces of mccormack, soft rubbery tissue measuring 0.4 x 0.4 x 0.2 cm. Submitted entirely , one cassette. /[facility] PRE OPERATIVE DIAGNOSIS Screening colon REVIEW CODE CODE: I Signed Electronically signed SUZANNE WELDON MD [id number] 44 Per NCEP ATP III Guidelines: Results lower than 40 mg/dL are suggestive of increased risk for coronary artery disease. Results > or=to 60 mg/dL are considered a negative risk factor. 45 Per NCEP ATP III Guidelines: Normal Population <130 Patients with medical conditions: CHD/DM Optimal: <100 Borderline high: 130-159 High: 160-189 Very high: >189 46 Per NCEP ATP III Guidelines: Results lower than 40 mg/dL are suggestive of increased risk for coronary artery disease. Results > or=to 60 mg/dL are considered a negative risk factor. 47 Per NCEP ATP III Guidelines: Normal Population <130 Patients with medical conditions: CHD/DM Optimal: <100 Borderline high: 130-159 High: 160-189 Very high: >189 48 COLONY COUNT ! 80,000-100,000 CFU/ml Organism 1 ! URETHRAL MADELYN 49 Negative <20 Weak positive 20 - 39 Moderate positive 40 - 59 Strong positive >59 50 Negative <1:80 Borderline 1:80 Positive >1:80 51 A positive DEB result may occur in healthy individuals or be associated with a variety of diseases. See interpre- tation below: Pattern Antigen Detected Suggested Disease Association Homogeneous DNA(ds,ss,), High titers - SLE ( Smooth) Histone Speckled Sm, CAP PARTS CUTTER, SCL-70, SLE,MCTD,Scleroderma,Sjogrens SS-A/SS-B ---- Nucleolar SCL-70, PM-1/SCL High titers Scleroderma Poly- myositis/Scleroderma Overlap Centromere Centromere PSS w/Crest syndrome variable Performed at: [address] [id number] Fire Extinguisher Tester: Casey Wilson MD, Phone: [phone] Performed at: [facility] [address] [id number] Fire Extinguisher Tester: Rosetta Valdez MD, Phone: [phone] Negative <1:80 Borderline 1:80 Positive >1:80 53 A positive DEB result may occur in healthy individuals or be associated with a variety of diseases. See interpre- tation below: Pattern Antigen Detected Suggested Disease Association Homogeneous DNA(ds,ss,), High titers - SLE ( Smooth) Histone Speckled Sm, CAP PARTS CUTTER, SCL-70, SLE,MCTD,Scleroderma,Sjogrens SS-A/SS-B ---- Nucleolar SCL-70, PM-1/SCL High titers Scleroderma Poly- myositis/Scleroderma Overlap Centromere Centromere PSS w/Crest syndrome variable Performed at: RN - [facility] [address] [id number] Fire Extinguisher Tester: Rosetta Valdez MD, Phone: [phone] Procedures Date Code Description Status 02/21/2018 25449 Measure Blood Oxygen Level Single Determination Completed 02/21/2018 39618 Electrocardiogram Complete Completed 06/21/2017 522338485 Bone Mineral Density Test Completed 06/21/2017 [id number] Mammogram Completed 03/04/2016 [id number] Mammogram Completed 05/09/2015 [id number] Colonoscopy Completed 05/08/2015 70908 X-Ray Knee Complete W/Obliques & Tunnel And/Or Completed Standing Views 12/07/2007 [id number] Bone Mineral Density Test Completed 06/02/2005 [id number] Bone Mineral Density Test Completed Encounters Type Date Location Provider Dx Diagnosis Office Visit 12/21/2017 [facility] Maya Hanley PA E03.9 Hypothyroidism, 9:00a unspecified E78.2 Mixed hyperlipidemia E55.9 Vitamin D deficiency, unspecified M25.511 Pain in RIGHT shoulder B35.1 Tinea unguium Z68.31 Body mass index (BMI) 31.0-31.9, adult Office Visit 10/12/2017 11:00a [facility] Maya Hanley PA Z01.818 Encounter for other preprocedural examination H25.013 Cortical age-related cataract, bilateral Z68.29 Body mass index (BMI) 29.0-29.9, adult Office Visit 06/17/2017 9:00a [facility] Maya Hanley PA Z00.00 Encntr for general adult medical exam w/o abnormal findings F17.210 Nicotine dependence, cigarettes, uncomplicated E78.2 Mixed hyperlipidemia E03.9 Hypothyroidism, unspecified E55.9 Vitamin D deficiency, unspecified N95.1 Menopausal and female climacteric states Z68.31 Body mass index (BMI) 31.0-31.9, adult Z23 Encounter for immunization Z13.89 Encounter for screening for other disorder Z11.59 Encounter for screening for other viral diseases Office Visit 12/18/2016 8:45a [facility] Bjorn Salcedo E03.9 Hypothyroidism, DO unspecified E55.9 Vitamin D deficiency, unspecified N95.1 Menopausal and female climacteric states E78.2 Mixed hyperlipidemia Office Visit 10/26/2016 4:15p [facility] Bjorn Salcedo DO M65.222 Calcific tendinitis, LEFT upper arm Office Visit 06/17/2016 9:15a [facility] Bjorn Salcedo DO E03.9 Hypothyroidism, unspecified E55.9 Vitamin D deficiency, unspecified N95.1 Menopausal and female climacteric states E78.2 Mixed hyperlipidemia Z00.00 Encntr for general adult medical exam w/o abnormal findings Z68.30 Body mass index (BMI) 30.0-30.9, adult Office Visit 12/19/2015 8:15a [facility] Bjorn Salcedo E03.9 Hypothyroidism, DO unspecified N95.1 Menopausal and female climacteric states E78.2 Mixed hyperlipidemia E55.9 Vitamin D deficiency, unspecified Z23 Encounter for immunization Office Visit 06/17/2015 8:15a [facility] Bjorn Salcedo E03.9 Hypothyroidism, DO unspecified N95.1 Menopausal and female climacteric states E78.2 Mixed hyperlipidemia E55.9 Vitamin D deficiency, unspecified M25.561 Pain in RIGHT knee Office Visit 05/08/2015 9:30a [facility] Bjorn Salcedo DO M17.9 Osteoarthritis of knee, unspecified M22.41 Chondromalacia patellae, RIGHT knee Office Visit 12/14/2014 8:30a [facility] Bjorn Salcedo DO E78.2 Mixed hyperlipidemia E03.9 Hypothyroidism, unspecified E55.9 Vitamin D deficiency, unspecified N95.1 Menopausal and female climacteric states Z12.11 Encounter for screening for malignant neoplasm of colon Office Visit 06/14/2014 9:45a [facility] Bjorn Salcedo DO 272.2 Hyperlipidemia Mixed 244.9 Hypothyroidism Other Unspec 268.9 Vitamin D Deficiency Unspec 727.43 Ganglion Unspec Plan of Treatment Future Appointment(s):06/14/2018 7:55 am - Schedule, Laboratory at [facility]2018 9:00 am - Maya Hnaley, PA at [facility]02/21/2018 - Maya Hanley PAZ01.818 Encounter for other preprocedural examinationComments:Abnormal EKGWill defer clearance to cardiologyReferral to Dr. Killian up: PrnM25.562 Pain in LEFT kneeComments:Pt scheduled for L total knee replacement with Dr. Williamson EKG - will require cardiac khdwrsxdaF20.462 Effusion, LEFT kneeComments:Pt scheduled for L total knee replacement with Dr. Williamson EKG - will require cardiac qiwvmbchcK61.0 Bilateral primary osteoarthritis of kneeComments:Pt scheduled for L total knee replacement with Dr. Williamson EKG - will require cardiac nytbnfxmqK90.31 Abnormal electrocardiogram [ECG] [EKG]Comments:T-wave inversion leads III, aVF, V-leads Will check troponin, CK todayWill refer to cardiology for evalTo ER with chest pain, palpitations, SOB, dizziness, vision changesCall with questions/ concernsReferral:Gerson Bhatia, Cardiology/Phys/NjmejW47.29 Other microscopic hematuriaComments:Will send urine for hmwlhcrY73.32 Body mass index (BMI) 32.0-32.9, adultComments:Diet changes, exercise to help with weight loss
--- OUTSIDE RECORDS SUMMARY | 2018-03-08 07:04 | XMS REPORT | Continuity of Care Document ---
:1950 External Reference #:[id number] Author Name Karen Mckeon Care Team Providers Name Role Phone Bjorn Salcedo DO Primary Care Physician Unavailable Payers Type Date Identification Numbers Payment Provider Subscriber Policy Number: [id number] Medicare Beatrice Gnirsbusch PayID: [id number] [address] [place] [address] Expires: 2017 Policy Number: [id number] Medicare Beatrice Gnirsbusch PayID: [id number] [address] [place] [address] Policy Number: [id number] [facility] Rand Crystal PayID: [id number] [address] [address] [place] [address] Advance Directives Description No Information Available Problems [...] Alone Occupation works on and off at [employer] ETOH Use Occasionally consumes alcohol Tobacco Use [...] Tablets 10mg 90tabs take 1 Mikala HCL 2018 tab by harley Terry M.D. 2-3 times a day as needed Synthroid 00/00/ Active Tablets 124mcg 1 by Unknown 0000 mouth every day Atorvastatin 0000/ Active Tablets 10mg 1 by Unknown Calcium 0000 mouth every day Vitamin D-400 / Active Tablets 400Unit 1 by Unknown 0000 [...] 3 mg Administered Injection Jonh and 3mg Yash Sheikh MD Celestone 3 mg Administered Injection Jonh and [...] Information Available Procedures Date Code Description Status 01/21/201893268 Inject/Drain Joint/Bursa Major W/O US Completed 10/08/201713791 Inject/Drain Joint/Bursa Major W/O US Completed 08/16/201787406 Inject/Drain Joint/Bursa Major W/O US Completed 11/03/2016 95074 Rad Shoulder Comp, Min. 2 Views Completed 11/03/201683343 Inject/Drain Joint/Bursa Major W/O US Completed Encounters Type Date Location Provider Dx Diagnosis Office Visit 01/21/2018 [facility] Jaime.31 [facility] 9:15a [facility] tendinitis of [place] right shoulder Office Visit 12/24/2017 [facility] Mikala Terry, M25.561 Pain in right knee 10:45a [facility] M25.562 Pain in left knee M25.461 Effusion, right knee M25.462 Effusion, left knee M17.0 Bilateral primary osteoarthritis of knee Office Visit 10/08/2017 [facility] Jon[facility] Hope.31 Calcific tendinitis 1:15p [facility] Sheikh MD of right shoulder AT [place] Office Visit 09/13/2017 [facility] Mikala Terry, M17.0 [...] Of [facility] Sheikh MD tendinitis of [place] left shoulder Office Visit 11/03/2016 10:30a [facility] Cabrera [facility] Sheikh MD tendinitis of AT [place] left shoulder M25.512 Pain in left shoulder Plan of Treatment Future Appointment(s):03/21/2018 2:00 pm - Mikala Terry M.D. at [facility]03/08/2018 11:00 am - JUSTUS Epstein at [facility]03/08/2018 11:00 am - TISH Bishop at [facility]03/08/2018 11:00 am - Mikala Terry M.D. at [facility]02/23/2018 - Mikala eTrry M.D.M25.562 Pain in left kneeFollow up:Follow up: 2 weeks after rbejjacV79.462 Effusion, left kneeM17.0 Bilateral primary osteoarthritis of knee
--- OUTSIDE RECORDS SUMMARY | 2018-03-08 07:04 | XMS REPORT | Continuity of Care Document ---
:1950 External Reference #:[id number] Author Name Xochitl Rosado Care Team Providers Name Role Phone Maya Hanley PA Care Team Information Reel Hooker Unavailable Payers Type Date Identification Numbers Payment Provider Subscriber Effective: Policy Number: [id number] Medicare Rand Crystal 2015 Group Name: [facility] [address] PayID: [id number] [facility] [place] [address] Effective: 2011 Policy Number: [facility] Commercial Rand Crystal [id number] PayID: [id number] [address] [address] [place] [address] Advance Directives Description No Information Available Problems Date Description Provider Status Onset: 03/05/2010 Vitamin D deficiency Bjorn Salcedo DO Active Onset: 05/06/2004 Hypothyroidism Bjorn Salcedo DO Active Onset: 05/06/2004 Female climacteric state Bjorn Salcedo DO Active Onset: 05/06/2004 Mixed hyperlipidemia Bjorn Salcedo DO Active Family History Date Family Member(s) Problem(s) Comments Father due to Age 55 CAD/MS () Mother due to Age 84 COPD/Emphysema () Social History Type Date Description Comments Sex Unknown Marital Status Single Lives With Alone 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 Remove with alcohol every 7 days Levothyroxine 06/17/ Active Tablets 125mcg 90tabs 1 by mouth E03.9 Moreno, Sodium 2018 every day DO Ankur Vitamin D 05/07/ Active Tablets 1000Unit 1 by mouth E55.9 Matias, 2015 every day DO Bjorn Atorvastatin 04/19/ Active Tablets 10mg 90tabs Take 1 E78.2 Josh Calcium 2014 Tablet Ankur, Daily DO Ibuprofen / Active [...] E03.9 Moreno, Sodium 2015 - every day Ankur, 06/17/ DO 2017 Nabumetone 05/07/ Hx Tablets 750mg 60tabs 1 by mouth M17.9 Matias, 2015 - twice a Bjorn, 06/16/ day with DO 2016 food Levothyroxine 06/14/ Hx Tablets 100mcg 90tabs 1 by mouth Matias, Sodium 2014 - every day Bjorn, 2015 Levothyroxine 04/19/ Hx Tablets 88mcg 90tabs 1 by mouth Matias, Sodium 2014 - every day Bjorn, 06/14/ 2014 Meclizine HCL 01/25/ Hx Tablets 25mg 60tabs 1 po q 8 Matias, 2012 - hours prn Bjorn 06/14/ dizziness DO 2014 Zostavax 12/06/ Hx Solution [id number] 1units use as Matias, 2011 - Rec .65ML directed Bjorn, 2015 Immunizations CPT Code Status Date Vaccine Reaction Lot # [id number] Given 12/21/2017 Flu Vaccine NOS 75445 Given 06/17/2017 Pneumococcal 23 Immunization [id number] Adult Or Immunosuppressed Patient 97402 Given 01/29/2017 Fluzone Highdose Age 65 And Given at [facility], [facility], [place] [address] Given 01/15/2016 Fluzone Highdose Age 65 And Given At Pharmacy Over Preservative & [facility]/ Antibiotic Free [address]93 Given 12/19/2015 Prevnar 13 Pneumococal Im inj completed [id number] Conjugate Vaccine [id number] Given 01/03/2015 Afluria Imunization Given At Pharmacy [facility]/[place] 10224 Given 01/03/2015 Zoster (Zostavax) Given At Pharmacy /[place] 71326 Given 03/03/2013 Tdap (Adacel) Ages 7 And RECEIVED AT ER IN [place] WHEN PT CUT FINGER. [address] Given 12/06/2012 Afluria Or Fluvirin Flu Vac Intramuscular 12385 Given 12/07/2011 Afluria Or Fluvirin Flu Vac Intramuscular 58641 Refused 12/21/2017 Influenza Vac, Quadrivalent, Split, 0.5mL [...] Date Facility Test Result H/L Range Note CBC with Auto Diff-fcmg 02/21/2018 [facility] 5.5 K/uL 4.1-11.0 1 RBC 4.81 M/uL 4.00-5.40 Hemoglobin 14.3 gm/dL 12.0-16.0 Hematocrit 42.7 % 36.0-47.0 MCV 88.8 fL 80.0-97.0 MCH 29.8 pg 27.0-32.0 MCHC 33.6 g/dL 32.0-36.0 RDW 13.5 % 11.5-14.5 PLT Count 241 K/ul 140-400 MPV 10.3 FL 7.1-10.7 Neutrophil 47.0 % 35.0-75.0 Lymphocyte 35.0 % 16.0-52.0 Monocyte 12.6 % High 2.0-10.0 Eosinophil 4.7 % 0.0-5.0 Basophil 0.7 % 0.0-4.0 Abs Neutrophils 2.6 K/uL 2.1-8.0 Abs Lymphocytes 1.9 K/uL 0.8-5.5 Abs Monocytes 0.7 K/uL 0.1-1.0 Abs Eosinophils 0.3 K/uL 0.0-0.5 Abs Basophils 0.0 K/uL 0.0-0.3 Comprehensive Met Panel-FCMG 02/21/2018 [facility] Sodium 140 mmol/L 135- 146 2 Potassium 4.5 mmol/L 3.5-5.2 Chloride# 103 mmol/L 97-110 3 Carbon Dioxide 30 mmol/L 24-34 Glucose 94 mg/dL 70-105 BUN 13 mg/dL 6-26 Creatinine 0.7 mg/dL 0.5-1.4 Calcium 9.5 mg/dL 8.5-10.2 Total Protein 6.8 g/dL 6.0-8.0 Albumin 4.2 g/dL 3.6-4.9 Globulin 2.6 g/dL 2.0-3.5 A/G Ratio 1.6 Ratio 1.0-2.2 Total Bilirubin 0.4 mg/dL 0.1-1.3 Alkaline Phosphatase 54 U/L 24-140 Alt 13 U/L 3-42 Ast 16 U/L 8-42 Kendra Egfr >60 >60 4 Non Kendra Egfr >60 >60 5 Anion Gap 7 mmol/L 5-15 6 Laboratory test finding 02/21/2018 [facility] Troponin I- RL <pending> CPK 60 U/L 12-199 Laboratory test 02/21/2018 [facility] Urine Culture <pending> finding Laboratory test 12/16/2017 [facility] Hepatitis C NON REACTIVE Non Reactive 7 finding Virus Antibody S/CORatio(Trung Lipid Treatment 12/16/2017 [facility] Cholesterol 214 mg/dL High 50-199 Triglycerides 98 mg/dL 30-200 HDL 77 mg/dL 35-85 8 Chol/ HDL Ratio 2.8 ratio Low 3.7-5.6 VLDL 20 mg/dL 2-29 LDL (Calc) 117 mg/dL High 20-99 9 Alt 20 U/L 3-42 Ast 19 U/L 8-42 Basic (BMP) 12/16/2017 [facility] Sodium 143 mmol/L 135-146 10 Potassium 4.6 mmol/L 3.5-5.2 Chloride# 102 mmol/L 97-110 11 Carbon Dioxide 31 mmol/L 24-34 Glucose 95 mg/dL 70-105 BUN 20 mg/dL 6-26 Creatinine 0.8 mg/dL 0.5-1.4 Calcium 9.5 mg/dL 8.5-10.2 Non Kendra Egfr >60 >60 12 Kendra Egfr >60 >60 13 Anion Gap 10 mmol/L 5-15 14 CBC with Auto Diff-fcmg 12/16/2017 [facility] WBC 5.5 K/uL 4.1-11.0 RBC 4.94 M/uL [...] 0.0 K/uL 0.0-0.3 Laboratory test finding 12/16/2017 [facility] TSH 1.67 uIU/mL 0.35-4.94 Vitamin D 25 Hydroxy 43 ng/mL 30-100 15 Laboratory test finding 08/16/2017 [facility] TSH 0.64 uIU/mL 0.35-4.94 16 Free T4 1.13 ng/dL 0.70-1.48 Laboratory test finding 06/11/2017 [facility] TSH 5.74 uIU/mL High 0.35- 4.94 Free T4 1.00 ng/dL 0.70-1.48 Vitamin D 25 Hydroxy 24 ng/mL Low 30-100 17 Lip[facility]11[facility]2017 [facility] 179 mg/dL 50-199 Triglycerides 99 mg/dL 30-200 HDL 61 mg/dL 35-85 18 Chol/ HDL Ratio 3.0 ratio Low 3.7-5.6 VLDL 20 mg/dL 2-29 LDL (Calc) 99 mg/dL 20-99 19 CBC With Auto Diff 06/11/2017 [facility] WBC 6.5 K/uL 4.1-11.0 RBC 4.69 M/uL [...] 0.1 K/uL 0.0-0.3 Comprehensive Met Panel-FCMG 06/11/2017 [facility] Sodium 141 mmol/L 135- 146 20 Potassium 4.1 mmol/L 3.5-5.2 Chloride# 101 mmol/L 97-110 21 Carbon Dioxide 30 mmol/L 24-34 Glucose 89 mg/dL 70-105 BUN 14 mg/dL 6-26 Creatinine 0.7 mg/dL 0.5-1.4 Calcium 9.0 mg/dL 8.5-10.2 Total Protein 6.4 g/dL 6.0-8.0 Albumin 4.0 g/dL 3.6-4.9 Globulin 2.4 g/dL 2.0-3.5 A/G Ratio 1.7 Ratio 1.0-2.2 Total Bilirubin 0.4 mg/dL 0.1-1.3 Alkaline Phosphatase 48 U/L 24-140 Alt 11 U/L 3-42 Ast 14 U/L 8-42 Kendra Egfr >60 >60 22 Non Kendra Egfr >60 >60 23 Anion Gap 10 mmol/L 5-15 24 Comprehensive Met Panel-FCMG 12/11/2016 [facility] Sodium 143 mmol/L 135- 146 25 Potassium 4.2 mmol/L 3.5-5.2 Chloride# 106 mmol/L 97-110 26 Carbon Dioxide 24 mmol/L 24-34 Glucose 98 mg/dL 70-105 Creatinine 0.7 mg/dL 0.5-1.4 Calcium 9.3 mg/dL 8.5-10.2 Total Protein 7.1 g/dL 6.0-8.0 Albumin 4.1 g/dL 3.6-4.9 Globulin 3.0 g/dL 2.0-3.5 A/G Ratio 1.4 Ratio 1.0-2.2 Total Bilirubin 0.4 mg/dL 0.1-1.3 Alkaline Phosphatase 57 U/L 24-140 Alt 15 U/L 3-42 Ast 18 U/L 8-42 Kendra Egfr >60 >60 27 Non Kendra Egfr >60 >60 28 Anion Gap 13 mmol/L 7-16 29 BUN 16 mg/dL 6-26 CBC With Auto [...] 138 mg/dL 30-150 HDL 71 mg/dL 45-85 30 Chol/ HDL Ratio 2.7 ratio Low 3.7-5.6 VLDL 28 mg/dL 2-29 LDL (Calc) 92 mg/dL 20-99 31 Laboratory test finding 12/11/2016 [facility] TSH 1.84 uIU/mL 0.35-4.94 Free T4 1.06 ng/dL 0.70-1.48 Vit D25oh 34 ng/mL 31-100 Laboratory test finding 06/02/2016 [facility] TSH 3.15 uIU/mL 0.35-4.94 Free T4 0.85 ng/dL 0.70-1.48 Vit D,25 Hydroxy 29 ng/mL Low 30-100 Comprehensive Metabolic (CMP) 06/02/2016 [facility] Sodium 141 mmol/L 135- 146 32 Potassium 5.7 No visible h <SEE NOTE> mmol/L High 3.5-5.2 33 Chloride# 106 mmol/L 97-110 34 Carbon Dioxide 31 mmol/L 24-34 Glucose 94 mg/dL 70-105 BUN 18 mg/dL 6-26 Creatinine 0.7 mg/dL 0.5-1.4 Calcium 9.3 mg/dL 8.5-10.2 Total Protein 6.7 g/dL 6.0-8.0 Albumin 4.2 g/dL 3.6-4.9 Globulin 2.5 g/dL 2.0-3.5 A/G Ratio 1.7 Ratio 1.0-2.2 Total Bilirubin 0.4 mg/dL 0.1-1.3 Alkaline Phosphatase 47 U/L 24-140 Alt 13 U/L 3-42 Ast 15 U/L 8-42 Kendra Egfr >60 >60 35 Non Kendra Egfr >60 >60 36 Anion Gap 10 mmol/L 7-16 37 Lipid 06/02/2016 [facility] Cholesterol 218 mg/dL High 50-199 Triglycerides 84 mg/dL 30-150 HDL 75 mg/dL 45-85 38 Chol/ HDL Ratio 2.9 ratio Low 3.7-5.6 VLDL 17 mg/dL 2-29 LDL (Calc) 126 mg/dL 20-129 39 CBC With Auto Diff 06/02/2016 [facility] WBC 5.4 K/uL 4.1-11.0 RBC 4.81 M/uL [...] 0.0 K/uL 0.0-0.3 Laboratory test finding 12/12/2015 [facility] TSH 5.31 uIU/mL High 0.35- 4.94 Free T4 1.00 ng/dL 0.70-1.48 Vit D,25 Hydroxy 32 ng/mL 31-100 Comprehensive Metabolic (CMP) 12/12/2015 [facility] Sodium 140 mmol/L 134- 142 Potassium 4.7 [...] 9 mmol/L 6-14 Kendra Egfr >60 >60 40 Non Kendra Egfr >60 >60 41 Lipid 12/12/2015 [facility] Cholesterol 190 mg/dL 50-199 Triglycerides 98 mg/dL 30-150 HDL 67 mg/dL 45-85 42 Chol/ HDL Ratio 2.8 ratio Low 3.7-5.6 VLDL 20 mg/dL 2-29 LDL (Calc) 103 mg/dL 20-129 43 Laboratory test finding 06/11/2015 [facility] TSH 3.79 [...] 9 mmol/L 6-14 Kendra Egfr >60 >60 44 Non Kendra Egfr >60 >60 45 Lipid 06/11/2015 [facility] Cholesterol 187 mg/dL 50-199 Triglycerides 126 mg/dL 30-150 HDL 66 mg/dL 45-85 46 Chol/ HDL Ratio 2.8 ratio Low 3.7-5.6 VLDL 25 mg/dL 2-29 LDL (Calc) 96 mg/dL 20-99 47 Laboratory test 05/09/2015 [facility] Polyp Colon And/Or See Note 48 finding (315)- - Rectum Lipid Treatment 12/07/2014 [facility] Cholesterol 183 mg/dL 50-199 Triglycerides 103 mg/dL 30-150 HDL 63 mg/dL 45-85 49 Chol/ HDL Ratio 2.9 ratio Low 3.7-5.6 VLDL 21 mg/dL 2-29 LDL (Calc) 99 mg/dL 20-99 50 Alt 11 U/L 3-42 Ast 15 U/L 8-42 Laboratory test finding 12/07/2014 [facility] TSH 2.12 uIU/mL 0.35-4.94 Free T4 1.03 ng/dL 0.70-1.48 Vit D,25 Hydroxy 52 ng/mL 31-100 Laboratory test finding 06/07/2014 [facility] Vit D,25 Hydroxy 45 ng/mL 31- 100 Lipid Treatment 06/07/2014 [facility] Cholesterol 199 mg/dL 50-199 Triglycerides 131 mg/dL 30-150 HDL 60 mg/dL 45-85 51 Chol/ HDL Ratio 3.3 ratio Low 3.7-5.6 VLDL 26 mg/dL 2-29 LDL (Calc) 113 mg/dL 20-129 52 Alt 11 U/L 3-42 Ast 16 U/L 8-42 Laboratory test finding 06/07/2014 [facility] TSH 6.47 uIU/mL High 0.34- 5.60 Free T4 0.82 ng/dL 0.50-1.60 Lipid Panel 11/30/2013 [email or web address] Chol/HDL Ratio 2.8 ratio Cholesterol 179.0 mg/dL 50.0-199.0 HDL 63.0 mg/dL 45.0-86.0 LDL, Calculated 98.0 mg/dL 20.0-129.0 Triglycerides 90.0 mg/dL 30.0-150.0 vLDL 18.0 ng/dL Laboratory test finding 11/30/2013 [email or web address] Import Alt 6.0 U/L Low 9.0- 52.0 Ast 16.0 U/L 14.0-36.0 FT4 1.07 ng/dL 0.75-1.54 TSH 4.34 uIU/ml 0.50-6.00 Vitamin D 34.0 ng/mL 30.0-100.0 Laboratory test finding 10/06/2013 [email or web address] Urine Culture See Note 53 Lipid Panel 05/30/2013 [email or web address] Chol/HDL Ratio 3.2 ratio Cholesterol 206.0 mg/dL High 50.0-199.0 HDL 65.0 mg/dL 45.0-86.0 LDL, Calculated 123.2 mg/dL 20.0-129.0 Triglycerides 89.0 mg/dL 30.0-150.0 vLDL 17.8 ng/dL Laboratory test 05/30/2013 [facility] Import C-Reactive < 2.9 mg/L 0.0-4.9 finding Protein,Quant CCP Igg/Iga Antibodies 9 units 0-19 54 Rheumatoid Factor Screen Negative Negative Uric Acid 4.4 mg/dL 2.1-7.4 Antinuclear 05/30/2013 [facility] Import Antinuclear See patterns . 55 Antibodies, Ifa Antibodies, Ifa Note See Note 56 Speckled Pattern 1:160 High . Laboratory test finding 05/30/2013 [facility] Import Alt 12.0 U/L 9.0-52.0 Ast 17.0 U/L 14.0-36.0 Esr Sedrate 13.0 sec 0.0-25.0 FT4 0.92 ng/dL 0.75-1.54 TSH 3.87 uIU/ml 0.50-6.00 Vitamin D 32.5 ng/mL 30.0-100.0 Antinuclear 11/29/2012 [facility] Import Antinuclear See patterns . 57 Antibodies, Ifa Antibodies, Ifa Note See Note 58 Speckled Pattern 1:80 . Laboratory test finding [...] 1 WEEK PRIOR TO NEXT VISIT 2 Updated reference range on new analyzer 3 Updated reference range on new analyzer 4 Concerning GFR Guidelines for Americans: Normal function or mild renal disease, if clinically at risk: >/=60 mL/min Moderately decreased: 30-59 Severely decreased: 15-29 Renal failure: <15 5 Concerning GFR Guidelines: Normal function or mild [...] drugs that are excreted by the kidneys. 6 Updated Reference Range 7 S/CO Ratio >/=1.0 is REACTIVE. S/CO <5.0 is Low Reactive. S/CO >/= 5.0 is High Reactive. Effective Oct 09, 2016 all anti-HCV reactive samples are sent for quantitative PCR confirmation. 8 Per NCEP ATP III Guidelines: Results lower than 40 mg/dL are suggestive of increased risk for coronary artery disease. Results > or=to 60 mg/dL are considered a negative risk factor. 9 Per NCEP ATP III Guidelines: Normal Population <130 Patients with medical conditions: CHD/DM Optimal: <100 Borderline high: 130-159 High: 160-189 Very high: >189 10 Updated reference range on new analyzer 11 Updated reference range on new analyzer 12 Concerning GFR Guidelines: Normal function or mild [...] drugs that are excreted by the kidneys. 13 Concerning GFR Guidelines for Americans: Normal function or mild renal disease, if clinically at risk: >/=60 mL/min Moderately decreased: 30-59 Severely decreased: 15-29 Renal failure: <15 14 Updated Reference Range 15 Clinical Guidelines for recommended serum 25(OH)Vitamin D Deficient at less than 20 ng/mL Insufficient at 20 to <30 ng/mL Sufficient at 30-100 ng/mL Toxicity at greater than 100 ng/mL 16 SCHEDULE 1 WEEK PRIOR TO NEXT VISIT 17 Clinical Guidelines for recommended serum 25(OH)Vitamin D Deficient at less than 20 ng/mL Insufficient at 20 to <30 ng/mL Sufficient at 30-100 ng/mL Toxicity at greater than 100 ng/mL 18 Per NCEP ATP III Guidelines: Results lower than 40 mg/dL are suggestive of increased risk for coronary artery disease. Results > or=to 60 mg/dL are considered a negative risk factor. 19 Per NCEP ATP III Guidelines: Normal Population <130 Patients with medical conditions: CHD/DM Optimal: <100 Borderline high: 130-159 High: 160-189 Very high: >189 20 Updated reference range on new analyzer [...] are excreted by the kidneys. 24 Updated Reference Range 25 Updated reference range on new analyzer 26 Updated reference range on new analyzer 27 Concerning GFR Guidelines for Americans: Normal function or mild renal disease, if clinically at risk: >/=60 mL/min Moderately decreased: 30-59 Severely decreased: 15-29 Renal failure: <15 28 Concerning GFR Guidelines: Normal function or mild [...] drugs that are excreted by the kidneys. 29 Updated reference range on new analyzer 30 Per NCEP ATP III Guidelines: Results lower than 40 mg/dL are suggestive of increased risk for coronary artery disease. Results > or=to 60 mg/dL are considered a negative risk factor. 31 Per NCEP ATP III Guidelines: Normal Population <130 Patients with medical conditions: CHD/DM Optimal: <100 Borderline high: 130-159 High: 160-189 Very high: >189 32 Updated reference range on new analyzer 33 5.7 No visible hemolysis. 34 Updated reference range on new analyzer 35 Concerning GFR Guidelines for Americans: Normal [...] that are excreted by the kidneys. 37 Updated reference range on new analyzer 38 Per NCEP ATP III Guidelines: Results lower than 40 mg/dL are suggestive of increased risk for coronary artery disease. Results > or=to 60 mg/dL are considered a negative risk factor. 39 Per NCEP ATP III Guidelines: Normal Population <130 Patients with medical conditions: CHD/DM Optimal: <100 Borderline high: 130-159 High: 160-189 Very high: >189 40 Concerning GFR Guidelines for Americans: Normal function or mild renal disease, if clinically at risk: >/=60 mL/min Moderately decreased: 30-59 Severely decreased: 15-29 Renal failure: <15 41 Concerning GFR Guidelines: Normal function or mild [...] drugs that are excreted by the kidneys. 42 Per NCEP ATP III Guidelines: Results lower than 40 mg/dL are suggestive of increased risk for coronary artery disease. Results > or=to 60 mg/dL are considered a negative risk factor. 43 Per NCEP ATP III Guidelines: Normal Population <130 Patients with medical conditions: CHD/DM Optimal: <100 Borderline high: 130-159 High: 160-189 Very high: >189 44 Concerning GFR Guidelines for Americans: Normal function or mild renal disease, if clinically at risk: >/=60 mL/min Moderately decreased: 30-59 Severely decreased: 15-29 Renal failure: <15 45 Concerning GFR Guidelines: Normal function or mild [...] drugs that are excreted by the kidneys. 46 Per NCEP ATP III Guidelines: Results lower than 40 mg/dL are suggestive of increased risk for coronary artery disease. Results > or=to 60 mg/dL are considered a negative risk factor. 47 Per NCEP ATP III Guidelines: Normal Population <130 Patients with medical conditions: CHD/DM Optimal: <100 Borderline high: 130-159 High: 160-189 Very high: >189 48 OPERATION/PROCEDURE Colonoscopy with polypectomy. DIAGNOSIS: "COLON, SIGMOID, BIOPSY": - HYPERPLASTIC POLYPS. /[facility] 0927 GROSS Received in formalin in a properly labeled container with the patient's name and accession number designated, "SIGMOID POLYPS". The specimen consists of multiple pieces of mccormack, soft rubbery tissue measuring 0.4 x 0.4 x 0.2 cm. Submitted entirely , one cassette. /[facility] PRE OPERATIVE DIAGNOSIS Screening colon REVIEW CODE CODE: I Signed Electronically signed SUZANNE WELDON MD [id number] 49 Per NCEP ATP III Guidelines: Results lower than 40 mg/dL are suggestive of increased risk for coronary artery disease. Results > or=to 60 mg/dL are considered a negative risk factor. 50 Per NCEP ATP III Guidelines: Normal Population <130 Patients with medical conditions: CHD/DM Optimal: <100 Borderline high: 130-159 High: 160-189 Very high: >189 51 Per NCEP ATP III Guidelines: Results lower than 40 mg/dL are suggestive of increased risk for coronary artery disease. Results > or=to 60 mg/dL are considered a negative risk factor. 52 Per NCEP ATP III Guidelines: Normal Population <130 Patients with medical conditions: CHD/DM Optimal: <100 Borderline high: 130-159 High: 160-189 Very high: >189 53 COLONY COUNT ! 80,000-100,000 CFU/ml Organism 1 ! URETHRAL MADELYN 54 Negative <20 Weak positive 20 - 39 Moderate positive 40 - 59 Strong positive >59 55 Negative <1:80 Borderline 1:80 Positive >1:80 56 A positive DEB result may occur in healthy individuals or be associated with a variety of diseases. See interpre- tation below: Pattern Antigen Detected Suggested Disease Association Homogeneous DNA(ds,ss,), High titers - SLE ( Smooth) Histone Speckled Sm, PUBLIC POLICY ANALYST, SCL-70, SLE,MCTD,Scleroderma,Sjogrens SS-A/SS-B ---- Nucleolar SCL-70, PM-1/SCL High titers Scleroderma Poly- myositis/Scleroderma Overlap Centromere Centromere PSS w/Crest syndrome variable Performed at: [address], [place] [id number] Entrance Guard: Casey Wilson MD, Phone: [phone] Performed at: [facility] [address], [place] [id number] Entrance Guard: Rosetta Valdez MD, Phone: [phone] 57 Negative <1:80 Borderline 1:80 Positive >1:80 58 A positive DEB result may occur in healthy individuals or be associated with a variety of diseases. See interpre- tation below: Pattern Antigen Detected Suggested Disease Association Homogeneous DNA(ds,ss,), High titers - SLE ( Smooth) Histone Speckled Sm, PUBLIC POLICY ANALYST, SCL-70, SLE,MCTD,Scleroderma,Sjogrens SS-A/SS-B ---- Nucleolar SCL-70, PM-1/SCL High titers Scleroderma Poly- myositis/Scleroderma Overlap Centromere Centromere PSS w/Crest syndrome variable Performed at: - [facility] [address], [place] [id number] Entrance Guard: Rosetta Valdez MD, Phone: [phone] Procedures Date Code Description Status 02/21/2018 70817 Measure Blood Oxygen Level Single Determination Completed 02/21/2018 31670 Electrocardiogram Complete Completed 06/21/2017 620559077 Bone Mineral Density Test Completed 06/21/2017 [id number] Mammogram Completed 03/04/2016 [id number] Mammogram Completed 05/09/2015 [id number] Colonoscopy Completed 05/08/2015 17699 X-Ray Knee Complete W/Obliques & Tunnel And/Or Completed Standing Views 12/07/2007 [id number] Bone Mineral Density Test Completed 06/02/2005 [id number] Bone Mineral Density Test Completed Encounters Type Date Location Provider Dx Diagnosis Office Visit 12/21/2017 [facility] Maya Hanley PA E03.9 Hypothyroidism, 9:00a unspecified E78.2 Mixed hyperlipidemia E55.9 Vitamin D deficiency, unspecified M25.511 Pain in RIGHT shoulder B35.1 Tinea unguium Z68.31 Body mass index (BMI) 31.0-31.9, adult Office Visit 10/12/2017 11:00a [facility] Maya Hanley PA Z01.818 Encounter for other preprocedural examination H25.013 Cortical age-related cataract, bilateral Z68.29 Body mass index (BMI) 29.0-29.9, adult Office Visit 06/17/2017 9:00a [facility] Maya Hanley PA Z00.00 Encntr for [...] other viral diseases Office Visit 12/18/2016 8:45a [facility] Bjorn Salcedo E03.9 Hypothyroidism, DO unspecified E55.9 Vitamin D deficiency, unspecified N95.1 Menopausal and female climacteric states E78.2 Mixed hyperlipidemia Office Visit 10/26/2016 4:15p [facility] Chopra DO M65.222 Calcific tendinitis, LEFT upper arm Office Visit 06/17/2016 9:15a [facility] Bjorn Salcedo DO E03.9 Hypothyroidism, unspecified E55.9 Vitamin D deficiency, unspecified N95.1 Menopausal and female climacteric states E78.2 Mixed hyperlipidemia Z00.00 Encntr for general adult medical exam w/o abnormal findings Z68.30 Body mass index (BMI) 30.0-30.9, adult Office Visit 12/19/2015 8:15a [facility] Bjorn Salcedo, E03.9 Hypothyroidism, DO unspecified N95.1 Menopausal and female climacteric states E78.2 Mixed hyperlipidemia E55.9 Vitamin D deficiency, unspecified Z23 Encounter for immunization Office Visit 06/17/2015 8:15a [facility] Bjorn Salcedo E03.9 Hypothyroidism, DO unspecified N95.1 Menopausal and female climacteric states E78.2 Mixed hyperlipidemia E55.9 Vitamin D deficiency, unspecified M25.561 Pain in RIGHT knee Office Visit 05/08/2015 9:30a [facility] Bjorn Salcedo DO M17.9 Osteoarthritis of knee, unspecified M22.41 Chondromalacia patellae, RIGHT knee Office Visit 12/14/2014 8:30a [facility] Bjorn Salcedo DO E78.2 Mixed hyperlipidemia E03.9 Hypothyroidism, unspecified E55.9 Vitamin D deficiency, unspecified N95.1 Menopausal and female climacteric states Z12.11 Encounter for screening for malignant neoplasm of colon Office Visit 06/14/2014 9:45a [facility] Bjorn Salcedo DO 272.2 Hyperlipidemia Mixed 244.9 Hypothyroidism Other Unspec 268.9 Vitamin D Deficiency Unspec 727.43 Ganglion Unspec Plan of Treatment Future Appointment(s):06/14/2018 7:55 am - Schedule, Laboratory at [facility]2018 9:00 am - Maya Hanley PA at [facility]02/21/2018 - Maya Hanley PAZ01.818 Encounter for other preprocedural examinationComments:Abnormal EKGWill defer clearance to cardiologyReferral to Dr. Killian up: PrnM25.562 Pain in LEFT kneeComments:Pt scheduled for L total knee replacement with Dr. Williamson EKG - will require cardiac iiurzaotoO78.462 Effusion, LEFT kneeComments:Pt scheduled for L total knee replacement with Dr. Williamson EKG - will require cardiac rikupmygvK86.0 Bilateral primary osteoarthritis of kneeComments:Pt scheduled for L total knee replacement with Dr. Williamson EKG - will require cardiac jmwjlrzcpK75.31 Abnormal electrocardiogram [ECG] [EKG]Comments:T-wave inversion leads III, aVF, V-leads Will check troponin, CK todayWill refer to cardiology for evalTo ER with chest pain, palpitations, SOB, dizziness, vision changesCall with questions/ concernsReferral:Gerson Bhatia, Cardiology/Phys/PagrzS17.29 Other microscopic hematuriaComments:Will send urine for pppqorxI54.32 Body mass index (BMI) 32.0-32.9, adultComments:Diet changes, exercise to help with weight loss
[2018-03-08] MEDS ORDERED: Famotidine IV* 10 MG/ML 2 ML (20 mg) ONE (07:49)
[2018-03-08] MEDS ORDERED: Dexamethasone IV* 4 MG/ML 1 ML (4 MG) ONE (07:49)
[2018-03-08] MEDS ORDERED: Buffered Lidocaine 1% SYRIN* 1 ML/SYRINGE INTRADERM ONE (07:50)
[2018-03-08] MEDS ORDERED: ceFAZolin 2 GM PREMIX in ORs 2 GM/50 ML BAG IVPB ONE (07:50)
[2018-03-08] MEDS ORDERED: Gabapentin CAP(*) 300 MG ONE (07:50)
[2018-03-08] MEDS ORDERED: Propofol* 10 MG/ML 20 ML BTL ONE (08:08)
[2018-03-08] MEDS ORDERED: KETAMINE HCL* 50 MG/ML 10 ML VIAL ONE (08:13)
[2018-03-08] MEDS ORDERED: Midazolam* 1 MG/ML 5 ML VIAL (5 MG) ONE ×3 (08:13→14:24)
[2018-03-08] MEDS: Lactated Ringers 1000 ML Bag* 1,000 ML IV SCH ×2 (08:21→18:07)
[2018-03-08] MEDS ORDERED: Dexamethasone TAB* 4 MG ONE (08:23)
[2018-03-08] MEDS ORDERED: Ondansetron INJ* 2 MG/ML VIAL ONE (09:21)
[2018-03-08] MEDS ORDERED: ROPIVACAINE 5 MG/ML 30 ML BTL (0.5%) ONE (09:24)
[2018-03-08] MEDS ORDERED: Phenylephrine INJ* 10 MG/ML 1 ML VIAL (10 MG) ONE (09:40)
[2018-03-08] MEDS ORDERED: Bupivacaine 0.5%* 50 ML VIAL ONE (09:59)
[2018-03-08] MEDS ORDERED: Acetaminophen IV 1GM/100ML * 100 ML ONE (10:22)
[2018-03-08] MEDS ORDERED: HYDROmorphone INJ1* 1 MG/ML SYRINGE IV PRN (10:39)
[2018-03-08] MEDS ORDERED: oxyCODONE/Acetamin 5/325 MG* TAB PO PRN ×2 (10:39→12:42)
[2018-03-08] MEDS ORDERED: DiMENhydriNATE IV* 50 MG/ML VIAL IV PUSH PRN (10:39)
[2018-03-08] MEDS ORDERED: Ondansetron INJ* 2 MG/ML VIAL IV PRN (10:39)
[2018-03-08] MEDS ORDERED: fentaNYL* 50 MCG/ML 2 ML VIAL (100 MCG VIAL) IV PRN (10:39)
[2018-03-08] MEDS ORDERED: Naloxone* 0.4 MG/ML 1 ML VIAL IV PRN (10:39)
[2018-03-08] MEDS ORDERED: Cyclobenzaprine TAB* 10 MG PO PRN (12:42)
[2018-03-08] MEDS ORDERED: Magnesium Hydroxide LIQ* 30 ML UDC PO PRN (12:42)
[2018-03-08] MEDS ORDERED: Polyethylene Glycol 3350* 17 GM PACKET PO PRN (12:42)
[2018-03-08] MEDS ORDERED: diPHENhydraMINE IV* 50 MG/ML 1 ml VIAL (BENADRYL) IV PRN (12:42)
[2018-03-08] MEDS ORDERED: traMADol TAB* 50 MG PO PRN (12:42)
[2018-03-08] MEDS ORDERED: Bisacodyl SUPP* 10 MG SUPP PR PRN (12:42)
[2018-03-08] MEDS ORDERED: Ondansetron TAB* 4 MG PO PRN (12:42)
[2018-03-08] MEDS ORDERED: ceFAZolin 1 GM ADVAN(*) 1 GM in NS 0.9% 50 ML* 50 ML IVPB SCH (13:00)
[2018-03-08] MEDS ORDERED: Acetaminophen TAB* 325 MG PO SCH (13:00)
--- NOTE | 2018-03-08 16:22 | PN ---
Progress Note - Progress Note Date of Service: 03/08/18 Note: Pt seen and examined at bedside in PACU. She has no pain at this time and her sensation and dorsiflexion are returning. denies CP, SOB, dizziness, nausea, history of DVT. Dressing CDI, slight dorsiflexion has returned since arrival to PACU, able to f/e MTPs. Sensation is reported as normal to light touch of lower leg, foot sensation intact but sensation remains decreased at this time.
[2018-03-08] MEDS ORDERED: Warfarin TAB(*) 6 MG PO ONE (17:30)
[2018-03-08] MEDS: oxyCODONE/Acetamin 5/325 MG* TAB PO PRN ×2 (17:33→21:34)
[2018-03-08] MEDS: Morphine VIAL* 4 MG/ML VIAL (1 ml vial) IV PRN (17:44)
[2018-03-08] MEDS: Docusate CAP* 100 MG PO SCH (19:36)
[2018-03-08] MEDS: oxyCODONE TAB* 5 MG TAB PO PRN ×2 (19:36→23:41)
[2018-03-08] MEDS: Magnesium Hydroxide LIQ* 30 ML UDC PO SCH (19:38)
[2018-03-08] MEDS: ceFAZolin 1 GM ADVAN(*) 1 GM in NS 0.9% 50 ML* 50 ML IVPB SCH (19:41)
[2018-03-08] MEDS: Acetaminophen TAB* 325 MG PO SCH (21:36)
--- NOTE | 2018-03-08 23:21 | OP ---
DATE OF OPERATION: 03/08/18 - ROOM #346 DATE OF : 50 ATTENDING SURGEON: Mikala Terry MD BUFFING WHEEL FORMER MACHINE: TISH Yoon. Ms. Griffith did help throughout the procedure with preparation of the leg, wound retraction, manipulation of the knee, and wound closure. ANESTHESIOLOGIST: Dr. Yusuf. ANESTHESIA: Spinal. PRE-OP DIAGNOSIS: Severe end-stage degenerative osteoarthritis of the left knee joint. POST-OP DIAGNOSIS: Severe end-stage degenerative osteoarthritis of the left knee joint. OPERATIVE PROCEDURE: Let total knee arthroplasty. COMPLICATIONS: None. TOURNIQUET TIME: 46 minutes. SPECIMENS: Bone and cartilage from the left knee joint sent to Pathology. HARDWARE USED: This is [employer] Cemented total knee arthroplasty hardware with 2 packages of simplex bone cement. For the femur, a left size 4 narrow posterior stabilized Legion Oxinium femoral component. For the tibia, a size 3 left Alize II tibial baseplate. For the insert, a 9-mm posterior stabilized articular insert size 3-4 and for the patella a 32-mm 7.5 thickness Alize II 3-peg all-poly patella. BRIEF HISTORY/INDICATIONS: Ms. Caballero is a 68-year-old female with years of increasingly severe left knee pain. The patient failed conservative treatment with antiinflammatories, pain medication, and intraarticular injections, as well as physical therapy. Her radiographs showed [id number] arthritis. Due to continued pain and decreased quality of life, she elected to undergo left total knee arthroplasty. Informed consent was obtained from the patient. She under-stood the risks of surgery included but were not limited to bleeding, infection, damage to nearby structures, continued pain, need for further surgery, intraoperative fracture, nerve palsy, hardware failure or loosening, knee stiffness, loss of motion, stroke, heart attack, blood clot, and . The patient wished to proceed. INTRAOPERATIVE FINDINGS: Intraoperatively, the patient was noted to have severe arthritis with complete loss of cartilage in all 3 compartments. DESCRIPTION OF PROCEDURE: Ms. Caballero was identified in the preanesthesia unit. Her left lower extremity was marked as the correct operative site. Informed consent was signed and placed in the chart. The patient was taken to the operating room and placed under spinal anesthesia. A Rivera catheter was placed. Tourniquet was placed on the left thigh. Left lower extremity was prepped and draped in the usual sterile fashion. Preop time-out was made to correctly identify the patient, side and site. Appropriate perioperative antibiotics were given within 1 hour of incision. Tourniquet was inflated and total tourniquet time for this procedure was 46 minutes. A midline incision was made with a 10 blade and carried down to the extensor mechanism. The 10 blade was used to make a standard medial parapatellar arthrotomy. The patellar was subluxed laterally. Electrocautery was used to subperiosteally elevate soft tissue off the superomedial tibia to the midsagittal plane. The knee was flexed up. The anterior horn of the lateral meniscus and ACL were sharply released. A drill was used to enter the distal femur. Intramedullary distal femoral cutting guide was pinned on the distal femur. Oscillating saw was used to make the distal femoral cut. Next the external rotation guide was pinned on the distal femur. Distal femur was sized to a size 4. Size 4 multi-cutting jig was pinned on the distal femur. Oscillating saw was used to make the appropriate 4 chamfer cuts. The PCL was completely released. Tibia was subluxed anteriorly. Extramedullary tibial cutting guide was pinned on the proximal tibia. Oscillating saw was used to make the proximal tibial cut perpendicular to the mechanical axis of the tibia. The bone was carefully removed. The knee was brought out into full extension. Spacer block had good fit with the knee in full extension. Medial and lateral ligaments were well balanced. Flexion and extension gaps were well balanced. The knee was flexed up. The lamina gem carver was placed both medially and laterally. Any remaining meniscus was carefully removed using electrocautery. Curved osteotome was used to remove any posterior osteophytes. Tibial tray and drop jovani were placed and once again confirmed a satisfactory tibial cut. A left size 4 narrow femoral trial was impacted on to the distal femur and had excellent fit and stability. The box for the posterior stabilized implant was prepared using a reamer and box cut osteotome. A size 3 tibial tray trial with a 9-mm insert trial was placed and the knee was taken through range of motion. The knee had full extension to 130 degrees of flexion with satisfactory patellofemoral tracking. The patella was everted. The 7 mm of patellar bone and cartilage was carefully removed using an oscillating saw. The patella was sized to a size 32. Three peg holes were drilled through the size 32 guide. A 32 trial patella with 7.5 thickness was placed on the patella. The knee was taken through range of motion. There was satisfactory patellofemoral tracking. All trials were carefully removed. Tibia was subluxed anteriorly and sized to a size 3. Proximal tibia was prepared using a size 3 keel punch. All bony cut surfaces were copiously irrigated with sterile saline and dried. Final implants were cemented into place starting with the tibia, followed by the femur , and last the patella. A 9-mm insert trial was placed and the knee was brought out into full extension. The tourniquet was turned down at 46 minutes. The knee was copiously irrigated with sterile saline. Electrocautery was used to obtain meticulous hemostasis. Once the cement had fully cured, the insert trial was removed. Any excess cement was removed from around the capsule and hardware. Final insert chosen was a 9-mm posterior stabilized articular insert size 3-4. This was locked into position on the tibial tray. Stability of the insert was checked and rechecked and noted to be stable. The extensor mechanism was closed using interrupted #1 Vicryl. The rest of the incision was closed in a layered fashion using 0 and 2-0 Vicryl. Skin was closed using running 3-0 nylon suture. Sterile Xeroform, 4x4s, and Webril were used to cover the incision. Jason wrap and cold pack were placed over this. The patient's anesthesia was reversed without difficulty. She was taken to the PACU in stable condition. Intended weightbearing will be weightbearing as tolerated. Intended DVT prophylaxis will be Eliquis. [id number]/[facility] #: [id number] [facility]
[2018-03-09] MEDS: Morphine VIAL* 4 MG/ML VIAL (1 ml vial) IV PRN (00:46)
[2018-03-09] MEDS: Ondansetron INJ* 2 MG/ML VIAL IV PRN ×2 (00:53→08:17)
[2018-03-09] MEDS: oxyCODONE/Acetamin 5/325 MG* TAB PO PRN ×3 (01:43→12:47)
[2018-03-09] MEDS: Lactated Ringers 1000 ML Bag* 1,000 ML IV SCH ×2 (03:12→03:22)
[2018-03-09] MEDS: ceFAZolin 1 GM ADVAN(*) 1 GM in NS 0.9% 50 ML* 50 ML IVPB SCH ×2 (03:39→11:54)
[2018-03-09] MEDS: oxyCODONE TAB* 5 MG TAB PO PRN ×3 (03:41→15:25)
[2018-03-09] MEDS: Acetaminophen TAB* 325 MG PO SCH ×2 (05:53→12:47)
[2018-03-09] MEDS ORDERED: Morphine INJ* 2 MG/ML 1 ML SYRINGE (TWO MG - NEW SYRINGE VERSION) IV PRN (06:00)
[2018-03-09] MEDS ORDERED: Levothyroxine TAB* 125 MCG TAB PO SCH (06:00)
[2018-03-09 06:27] LABS: Hematocrit 37 % (35-47); Hemoglobin 12.5 g/dl (12.0-16.0); Mean Platelet Volume 9.5 fL (7.4-10.4); Platelet Count 204 10^3/ul (150-450)
[2018-03-09 06:33] LABS: INR 0.98 (0.77-1.02)
[2018-03-09 07:00] LABS: BUN/Creatinine Ratio 14.9 (8-20); Calcium 8.9 mg/dL (8.6-10.3); EGFR African American 105.9 (>60); EGFR Non-African American 87.5 (>60); Potassium 4.2 mmol/L (3.5-5.0)
[2018-03-09] MEDS: Magnesium Hydroxide LIQ* 30 ML UDC PO SCH (08:13)
[2018-03-09] MEDS: Docusate CAP* 100 MG PO SCH (08:13)
[2018-03-09] MEDS ORDERED: Atorvastatin* 10 MG TAB PO SCH (09:00)
[2018-03-09] MEDS ORDERED: Apixaban* 2.5 MG TAB PO SCH (09:00)
[2018-03-09] MEDS ORDERED: Enoxaparin(*) 40 MG/0.4 ML SYR SUBCUT SCH (12:00)
--- NOTE | 2018-03-09 15:41 | PN ---
Progress Note - Progress Note Date of Service: 03/09/18 SOAP: Subjective: [] Patient was seen and examined at bedside. She feels well without CP, SOB, dizziness, nausea. LLE pain is well controlled. Objective: []General: Well appearing, NAD LLE: Left knee dressing changed, incision CDI without erythema or discharge. Thigh is soft, DF/PF intact, DP2+, sensation intact to light touch distally. Calves supple and nontender without erythema, edema or palpable cords Assessment: []POD 1 sp left total knee arthroplasty Plan: []WBAT PT/OT eliquis 2.5 mg po BID for DVT prophylaxis DC to home today with homecare, daughter is her behavioral analyst post op at home. Vital Signs Temp 98.3 F 03/09/18 11:27 Pulse 70 03/09/18 11:27 Resp 18 03/09/18 15:25 BP 113/68 03/09/18 11:27 Pulse Ox 100 03/09/18 11:27 Intake & Output 03/08/18 03/09/18 03/09/18 18:59 06:59 18:59 Intake Total 2090 2393 1855 Output Total 3000 1700 1050 Balance -910 693 805 Weight 187 lb 3.2 oz Intake: IV Fluids 1850 1093 1035 ABX - CEFAZOLIN 110 55 LR 1850 983 980 Oral 240 1300 820 Output: Urine 1050 Rivera 3000 1700 Laboratory Last Values Hgb 12.5 g/dl (12.0-16.0) 03/09/18 06:13 Hct 37 % (35-47) 03/09/18 06:13 Plt Count 204 10^3/ul (150-450) 03/09/18 06:13 MPV 9.5 fL (7.4-10.4) 03/09/18 06:13 INR (Anticoag Therapy) 0.98 (0.77-1.02) 03/09/18 06:13 Sodium 137 mmol/L (135-145) 03/09/18 06:13 Potassium 4.2 mmol/L (3.5-5.0) 03/09/18 06:13 Chloride 103 mmol/L (101-111) 03/09/18 06:13 Carbon Dioxide 30 mmol/L (22-32) 03/09/18 06:13 Anion Gap 4 mmol/L (2-11) 03/09/18 06:13 BUN 10 mg/dL (6-24) 03/09/18 06:13 Creatinine 0.67 mg/dL (0.51-0.95) 03/09/18 06:13 Est GFR ( Amer) 105.9 (>60) 03/09/18 06:13 Est GFR (Non-Af Amer) 87.5 (>60) 03/09/18 06:13 BUN/Creatinine Ratio 14.9 (8-20) 03/09/18 06:13 Glucose 119 mg/dL (70-100) H 03/09/18 06:13 Calcium 8.9 mg/dL (8.6-10.3) 03/09/18 06:13
[2018-03-09 16:18] VITALS: BP 123/66
--- NOTE | 2018-03-09 20:44 | DS ---
DISCHARGE SUMMARY: DATE OF ADMISSION: 03/08/18 DATE OF DISCHARGE: 03/09/18 PROVIDER: Dr. Mikala Terry.* (DICTATED BY TISH ADORNO) PREOPERATIVE DIAGNOSIS: Severe end-stage degenerative osteoarthritis of the left knee joint. OPERATIVE PROCEDURE: Left total knee arthroplasty. HISTORY: Ms. Caballero is a 68-year-old female with years of increasingly severe left knee pain. She failed conservative management and elected to undergo left total knee arthroplasty. HOSPITAL COURSE: The patient was admitted to [facility] on . She underwent left total knee arthroplasty without complication. Postop day 1, she was well appearing and in no acute distress. Left knee dressing was changed. Incision was clean, dry, and intact without erythema or discharge. Thigh was soft. Dorsiflexion and plantar flexion intact. DP pulse 2+. Sensation intact to light touch distally. Dorsiflexion and plantar flexion intact. Vital Signs: Temperature 98.3, pulse 70, respiratory rate 18, blood pressure 113/68, pulse ox 100. Hemoglobin 12.5, hematocrit 37. Patient was deemed to be medically and orthopedically stable for discharge home. She met her physical therapy goals. DISCHARGE MEDICATIONS: Include: 1. Vitamin D 1000 units p.o. q.a.m. 2. Atorvastatin 10 mg p.o. q.a.m. 3. Levothyroxine 125 mcg p.o. q.a.m. 4. Vitamin B12 100 mg p.o. q.a.m. 5. Ciclopirox 8 mg solution liquid 1 dose topically q.a.m. 6. Acetaminophen 975 mg p.o. q.8 hours p.r.n. 7. Eliquis 2.5 mg p.o. b.i.d. 8. Cyclobenzaprine 10 mg p.o. t.i.d. p.r.n. 9. Docusate 100 mg p.o. b.i.d. p.r.n. 10. Zofran 4 mg p.o. q.6 hours p.r.n. 11. Percocet 5/325, 1 to 2 tabs every 4 to 6 hours as needed for pain, max daily dose of 10. DISCHARGE INSTRUCTIONS: The patient will be weightbearing as tolerated, okay to shower on postop day 3. DVT prophylaxis, Eliquis 2.5 mg by mouth every 12 hours for 30 days. Pain control Percocet 5/325, 1 to 2 tablets every 4 to 6 hours as needed for pain, max 10 dose per day to help with preservation. He may have a few cyclobenzaprine 10 mg every 8 hours as needed for pain for muscle spasm. Zofran 4 mg tab every 6 hours as needed for nausea. Follow up with Dr. Terry in 10 to 14 days. DISPOSITION: Discharged to home. TISH YUAN [id number]/[facility] #: [id number] DEL
== END 2018-03-09 16:45 | disposition home or self-care (01) ==
LOC: AA 06:59 → INTOOBSV 06:59 → SSU 16:59
PROVIDERS: ADMIT Orthopaedic Surgery Adult Reconstructive Orthopaedic Surgery; ATTEND Orthopaedic Surgery Adult Reconstructive Orthopaedic Surgery
DX: M17.12 Unilateral primary osteoarthritis, left knee (principal); M25.562 Pain in left knee; E03.9 Hypothyroidism, unspecified; E78.00 Pure hypercholesterolemia, unspecified
CPT/HCPCS: 36415; 80048; 85014; 85018; 85049; 85610; 96374; 96375; 96376; A9270-GY; G0378; G8978-GP-CJ; G8979-GP-CI; G8987-GO-CJ; G8988-GO-CJ; G8989-GO-CJ; J0690; J1100; J2250; J2270; J2405; J2704; J2795; J8540

== ENCOUNTER 2018-08-11 13:28 | Emergency (ER) | payer MEDICARE, BC ==
[2018-08-11 13:37] VITALS: BP 158/89
--- NOTE | 2018-08-11 14:07 | UC ---
General HPI - HPI Summary HPI Summary: short term memory loss x 2 hrs was talking on the phone with her daughter this morning about 2 hrs ago daughter noted that she does not sound right, and she sounded confused mother couldn't remember simple things, for eg. her car, or what she was doing pt. claims that she is feeling better now and her memory is back - History of Current Complaint Chief Complaint: UCAlteredMentalStatus Stated Complaint: CONFUSION Time Seen by Provider: 08/11/18 13:44 Hx Obtained From: Patient, Family/Hydraulic Blocker Onset/Duration: Gradual Onset, Lasting Hours - 2, Resolved Timing: Constant Onset Severity: Moderate Current Severity: Mild Pain Intensity: 2 Associated Signs & Symptoms: Positive: Headache. Negative: Agitation, Abdominal Pain, Chest Pain, Decreased Responsiveness, Decreased Oral Intake, Nausea, Palpitations, SOB, Trauma, Vomiting, Wheezing, Weakness - Allergy/Home Medications Allergies/Adverse Reactions: Allergies Allergy/AdvReac Type Severity Reaction Status Date / Time ketorolac [From Acular] Allergy Severe unspecified Verified 08/11/18 13:34 hives NSAIDS (Non-Steroidal Allergy Severe Hives Verified 08/11/18 13:34 Anti-Inflamma Home Medications: Home Medications Cyanocobalamin TAB* [Vitamin B12 TAB*] 500 mcg PO DAILY 08/11/18 [History Confirmed 08/11/18] PMH/Surg Hx/FS Hx/Imm Hx - Additional Past Medical History Additional PMH: high cholesterol Endocrine History: Thyroid Disease - Surgical History Surgical History: Yes Surgery Procedure, Year, and Place: right knee meniscus repair- [place] 08/14/15 - Family History Known Family History: Negative: Diabetes - Social History Alcohol Use: Weekly Substance Use Type: None Smoking Status (MU): Former Smoker When Did the Patient Quit Smoking/Using Tobacco: 09/2017 - Immunization History Most Recent Influenza Vaccination: 2018 Most Recent Pneumonia Vaccination: 2014 Review of Systems All Other Systems Reviewed And Are Negative: Yes Constitutional: Positive: Negative Skin: Positive: Negative Eyes: Positive: Negative ENT: Positive: Negative Respiratory: Positive: Negative Cardiovascular: Positive: Negative Gastrointestinal: Positive: Negative Genitourinary: Positive: Negative Neurological: Positive: Headache Psychological: Positive: Negative Is Patient Immunocompromised?: No Physical Exam Triage Information Reviewed: Yes Appearance: Well-Appearing, No Pain Distress, Well-Nourished Vital Signs: Initial Vital Signs Temp 98.1 F 08/11/18 13:29 Pulse 89 08/11/18 13:29 Resp 18 08/11/18 13:29 BP 158/89 08/11/18 13:29 Pulse Ox 97 08/11/18 13:29 Vital Signs Reviewed: Yes Eye Exam: Normal Eyes: Positive: Conjunctiva Clear ENT: Positive: Normal ENT inspection, Hearing grossly normal, Pharynx normal, TMs normal Neck: Positive: Supple, Nontender, No Lymphadenopathy Respiratory: Positive: Chest non-tender, Lungs clear, Normal breath sounds, No respiratory distress Cardiovascular: Positive: RRR, No Murmur, Pulses Normal, Brisk Capillary Refill Abdominal Exam: Normal Abdomen Description: Positive: Nontender, Soft. Negative: CVA Tenderness (R), CVA Tenderness (L), Distended, Guarding Bowel Sounds: Positive: Present Musculoskeletal: Positive: Strength Intact, ROM Intact Neurological: Positive: Alert Skin Exam: Normal UC Physical Exam Vital Signs On Initial Exam: Initial Vitals Temp Pulse Resp BP Pulse Ox 98.1 F 89 18 158/89 97 08/11/18 13:29 08/11/18 13:29 08/11/18 13:29 08/11/18 13:29 08/11/18 13:29 - Neurological Exam Neurological: Sensory/Motor Intact, CN Intact II-III, Reflexes Intact, Normal Gait, Speech Normal Course/Dx - Diagnoses Provider Diagnosis: Acute confusion Discharge - Sign-Out/Discharge Documenting (check all that apply): Patient Departure All imaging exams completed and their final reports reviewed: No Studies - Discharge Plan Condition: Good Disposition: [facility]ANS [facility] Patient Education Materials: Transient Global Amnesia (ED), Mild Cognitive Impairment: New Diagnosis (DC) Referrals: Bjorn Salcedo DO [Primary Care Provider] - Additional Instructions: please go to [facility] ED for evaluation ? TIA - Billing Disposition and Condition Condition: GOOD Disposition: Trans Higher l of Care Fac
== END 2018-08-11 14:05 | disposition short-term general hospital (02) ==
LOC: UCCORT 13:28
DX: R41.0 Disorientation, unspecified (principal); Z87.891 Personal history of nicotine dependence
CPT/HCPCS: 99212; G0463

== ENCOUNTER 2018-08-11 19:17 | Observation (INO) | payer MEDICARE, BC ==
--- NOTE | 2018-08-11 19:30 | ED ---
Neurological HPI - HPI Summary HPI Summary: This pt is a 68 y/o female presenting to [facility] via EMS from [facility] for possible TIA earlier today. Pt reports she was at home by herself on her deck getting ready when she saw a missed call from her daughter. Pt called her daughter back around 11:30-12:00 today and daughter noticed the pt was not right. Pt states her daughter told her she had 14 stitches placed 2 days ago. Pt seemed to be confused when speaking to her daughter. Pt does admit to being confused and not remembering simple things, for example her car. Daughter went over to the patient's house and pt was taken to [facility]. Patient was then sent from [facility] to [facility] where she had work up done. Dr. Carter, neurologist, was contacted by [facility] and was recommended to bring the patient to the ED at [facility]. Pt denies any symptoms now. Denies chest pain, nausea, vomiting. - History of Current Complaint Stated Complaint: NEURO EVAL PER EMS Hx Obtained From: Patient Onset/Duration: Started hours ago, Resolved Timing: Sudden Onset Current Severity: None Pain Intensity: 0 - denies pain Pain Scale Used: 0-10 Numeric Character: Confusion Aggravating: Nothing Alleviating: Nothing Associated Signs and Symptoms: Positive: Confusion. Negative: Pain, Nausea/ Vomiting, Fever, Chest Pain, Shortness of Breath - Additional Pertinent History Primary Care Physician: [id number] - Allergy/Home Medications Allergies/Adverse Reactions: Allergies Allergy/AdvReac Type Severity Reaction Status Date / Time ketorolac [From Acular] Allergy Severe unspecified Verified 08/11/18 19:48 hives NSAIDS (Non-Steroidal Allergy Severe Hives Verified 08/11/18 19:48 Anti-Inflamma Home Medications: Home Medications Atorvastatin Calcium 10 mg PO DAILY 08/11/18 [History Confirmed 08/11/18] Levothyroxine TAB* 125 mcg PO DAILY 08/11/18 [History Confirmed 08/11/18] PMH/Surg Hx/FS Hx/Imm Hx Endocrine/Hematology History: Reports: Hx Thyroid Disease - Hypothyroidism Cardiovascular History: Reports: Other Cardiovascular Problems/Disorders - high cholesterol Musculoskeletal History: Reports: Hx Arthritis, Hx Tendonitis - calcified tendinitis right shoulder Sensory History: Reports: Hx Contacts or Glasses - for reading Denies: Hx Hearing Aid Opthamlomology History: Reports: Hx Contacts or Glasses - for reading Psychiatric History: Reports: Hx Anxiety - about surgery and all tests getting done for surgery - Cancer History Hx Chemotherapy: No - Surgical History Surgery Procedure, Year, and Place: right knee meniscus repair- [place] 08/14/15 Hx Anesthesia Reactions: Yes - sometimes nausea and headache Infectious Disease History: No Infectious Disease History: Denies: Traveled Outside the [place] in Last 30 Days - Family History Known Family History: Negative: Diabetes - Social History Alcohol Use: Weekly Substance Use Type: Reports: None Smoking Status (MU): Former Smoker Review of Systems Negative: Fever Negative: Chest Pain Negative: Shortness Of Breath Negative: Vomiting, Nausea Neurological: Other - POSITIVE: confusio All Other Systems Reviewed And Are Negative: Yes Physical Exam - Summary Physical Exam Summary: Appearance: Well-appearing, Well-nourished, lying in bed comfortably Skin: Warm, dry, no obvious rash Eyes: sclera anicteric, no conjunctival pallor ENT: mucous membranes moist, pharynx appears normal Neck: Supple, nontender Respiratory: Clear to auscultation, no signs of respiratory distress Cardiovascular: Normal S1, S2. No murmurs. Normal distal pulses in tibial and radial bilaterally. Abdomen: Soft, nontender, normal active bowel sounds present Musculoskeletal: Normal, Strength/ROM Intact, Motor function in all 4 extremities is normal and symmetric. There is no rigidity or tremor noted. Neurological: A&Ox3, awake and alert, mentation is normal, speech is fluent and appropriate, Level of consciousness nml. The patient is alert and oriented. Cranial nerves are grossly intact. Gaze is conjugate and without nystagmus. Peripheral vision is intact to confrontation. There are no gross sensory abnormalities to light touch. There is no truncal or fine motor ataxia. Gait is normal. Psychiatric: affect is normal, does not appear anxious or depressed Triage Information Reviewed: Yes Vital Signs On Initial Exam: Initial Vitals Temp Pulse Resp BP Pulse Ox 98.3 F 97 18 140/80 97 08/11/18 19:25 08/11/18 19:25 08/11/18 19:25 08/11/18 19:25 08/11/18 19:25 Vital Signs Reviewed: Yes Diagnostics - Vital Signs Vital Signs Temp Pulse Resp BP Pulse Ox 08/11/18 19:25 98.3 F 97 18 140/80 97 - Laboratory Result Diagrams: 08/12/18 04:40 08/12/18 04:40 Lab Statement: Any lab studies that have been ordered have been reviewed, and results considered in the medical decision making process. NIH Scale - NIH Scale Level of Consciousness: Alert/Keenly Responsive Ask Patient the Month and His/Her Age: Both Correct Ask Pt to Open/Close Eyes and Meter Reader Chief/Release Non-Paretic Hand: Both Correctly Best Gaze (Only Horizontal Eye Movement): Normal Visual Field Testing: No Visual Loss Facial Paresis-Pt to Smile & Close Eyes or Grimace Symmetry: Normal/Symmetrical Motor Function - Right Arm: No Drift-Holds 10 Seconds Motor Function - Left Arm: No Drift-Holds 10 Seconds Motor Function - Right Leg: No Drift-Holds 10 Seconds Motor Function - Left Leg: No Drift-Holds 10 Seconds Limb Ataxia-Must be out of Proportion to Weakness Present: Absent Sensory (Use Pinprick to Test Arms/Legs/Trunk/Face): Normal Best Language (Describe Picture, Name Items): No Aphasia Dysarthria (Read Several Words): Normal Extinction and Inattention: No Abnormality Total Score: 0 Course/Dx - Course Assessment/Plan: Pt is a 68 y/o female presenting to [facility] via EMS from [facility] for possible TIA earlier today. Pt reports she was called her daughter around 11:30-12:00 today and daughter noticed the pt was not right. Pt does admit to being confused and not remembering simple things, for example her car. Pt denies any symptoms currently. Dr. Carter, neurologist, was contacted by [facility] and was recommended to bring the pt to the ED at [facility] for a neurology consult. Pt had blood work and CT done at [facility] today. Discussed the case with Dr. Valiente, hospitalist, who has accepted the pt for admission. - Diagnoses Provider Diagnoses: TIA (transient ischemic attack) - Physician Notifications Discussed Care Of Patient With: Ronen Valiente - hospitalist Time Discussed With Above Provider: 19:32 Instructed by Provider To: Admit As Inpatient Discharge - Sign-Out/Discharge Documenting (check all that apply): Patient Departure - Admit to [facility] All imaging exams completed and their final reports reviewed: No Studies Patient Received Moderate/Deep Sedation with Procedure: No - Discharge Plan Condition: Stable Disposition: ADMITTED TO [facility] - Billing Disposition and Condition Condition: STABLE Disposition: Admitted to [facility] - Attestation Statements Document Initiated by Keyon: Yes Documenting Scribe: Doris Damon Provider For Whom Keyon is Documenting (Include Credential): Miguel Cruz MD Scriblu Attestation: Doris Velazquez, scribed for Miguel Cruz MD on 08/12/18 at 0619. Scribe Documentation Reviewed: Yes Provider Attestation: The documentation as recorded by the Doris peñaloza accurately reflects the service I personally performed and the decisions made by me, Miguel rCuz MD Status of Scribe Document: Viewed
[2018-08-11] MEDS ORDERED: Enoxaparin(*) 40 MG/0.4 ML SYR SUBCUT SCH (20:45)
[2018-08-11] MEDS ORDERED: Atorvastatin* 10 MG TAB PO SCH (21:00)
[2018-08-11] MEDS: Clopidogrel TAB* 75 MG PO SCH (22:10)
--- NOTE | 2018-08-11 23:15 | HP ---
CC: TISH Granger at [facility]. * ADMISSION HISTORY AND PHYSICAL: DATE OF ADMISSION: 08/11/18 CHIEF COMPLAINT: Trouble speaking. HISTORY OF PRESENT ILLNESS: Ms. Caballero is a 68-year-old woman with history of hypothyroidism and hyperlipidemia, who was working at her back porch this afternoon, when she got in the phone with her daughter. The daughter reports that her speech was not intelligible and that it was full of nonsense sentences and paraphrasic errors. The daughter came over to the house and the patient continued to be confused. Did not know why the daughter had come over, did not recognize daughter's new car, did not remember that she has been standing in her back porch. The patient was taken by the daughter to the [facility] where the patient was then transferred to the [facility] Emergency Department. In the emergency department, the patient was assessed to have a possible TIA as her symptoms were resolving at that point. Because of her need for neurologic consultation, the patient was accepted and transferred over to the [facility] ER. The patient did admit to having a headache on the right temporal area, which was mild and occurred about 1 or 2 hours after this event. She does not have a headache now. The patient does also report that she woke up this morning feeling kind of strange and had a abby vu sensation. Her daughter also reports that she may have had another episode within the last year where she seemed confused and forgetful in a very brief period of time that resolved on its own without any medical workup. PAST MEDICAL HISTORY: Includes: 1. Hypothyroidism. 2. Hyperlipidemia. 3. Vitamin B12 deficiency. 4. Menopause. PAST SURGICAL HISTORY: Left total knee replacement. MEDICATIONS ON ADMISSION: 1. Atorvastatin 10 mg p.o. q.h.s. 2. Vitamin B12 500 mcg p.o. daily. 3. Estradiol 10 mcg tablet vaginally twice a week. 4. Levothyroxine 125 mcg p.o. q.a.m. ALLERGIES: NSAIDs cause a rash. 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 She quit tobacco about 1 year ago. She drinks alcohol socially. No recreational drugs. FAMILY HISTORY: Notable for father of [place] at age 55. Mother had COPD and also had stroke due to carotid disease. REVIEW OF SYSTEMS: The patient denies any fever or neck stiffness. The patient denies any thyroid problems other than hypothyroidism. The patient denies any shortness of breath or cough. The patient denies any chest pain or palpitations. Remainder of 14-point review of systems negative other than mentioned in the HPI. PHYSICAL EXAMINATION GENERAL: She is an elderly woman, in no acute distress. VITAL SIGNS: Her temperature is 36.8, pulse is 97, respirations 18, blood pressure is 140/80, O2 sat is 97% on room air. HEENT: Head is normocephalic, atraumatic. Sclerae anicteric. Pupils equal, round, and reactive to light and accommodation. Oropharynx is moist. No lesions. NECK: No JVD. No carotid bruit. No thyromegaly. LUNGS: Clear to auscultation and percussion bilaterally. HEART: Regular rate and rhythm without murmurs or gallops. ABDOMEN: Soft, nontender. Positive bowel sounds. No hepatosplenomegaly. EXTREMITIES: No peripheral edema. Dorsalis pedis pulses are 1+ bilaterally. NEUROLOGIC: Cranial nerves II through XII are intact. There is no nystagmus. Motor strength is 5/5 in upper and lower extremities. Deep tendon reflexes are 1+ upper extremities symmetric, lower extremities absent in the left patella probably due to previous surgery in that region. There is no pronator drift. DIAGNOSTIC STUDIES/LAB DATA: Sodium 139, potassium 3.8, chloride 106, bicarb 24, BUN 14, creatinine 0.8, glucose 105, calcium 9.3. Total protein 8.7, albumin 4.1, AST 21, ALT 23, CPK is 209, troponin is less than 0.015. White count 8.1, hemoglobin of 14.4, hematocrit of 45%, platelets are normal. Urinalysis is negative. EKG is with normal sinus rhythm, normal axis, low voltages. Chest x-ray is negative for infiltrates or effusions. Head CT is negative for infarct or bleed. ASSESSMENT AND PLAN: A 68-year-old woman presenting with transient ischemic attack versus focal seizure versus transient global amnesia. The patient will be admitted to observation and followed on telemetry to assess for arrhythmias that could cause transient ischemic attacks. The patient will have serial troponins to assess for cardiac ischemia and have echocardiogram in the morning to look for a source of clot. The patient was discussed with Dr. Carter of Neurology. The patient will have MRI, MRA of the head and neck tonight and in the morning to assess for seizure focus intracranial or carotid stenosis as a cause for seizure or transient ischemic attack. The patient has been started on Plavix to prevent stroke given that she is allergic to ASPIRIN. For hypothyroidism, we will continue her normal dose of levothyroxine and check a TSH in the morning. For her cholesterol, we will keep her on Lipitor and check for lipids in the morning. For elevated total protein and normal albumin, we will check a serum protein electrophoresis in the morning. For DVT prophylaxis, the patient will have subcutaneous Lovenox while she is here in the hospital. [id number]/[facility] #: [id number] DEL
[2018-08-12 04:52] LABS: ABS Basophils 0.1 10^3/ul (0-0.2); ABS Eosinophils 0.2 10^3/ul (0-0.6); ABS Lymphocytes 2.3 10^3/ul (1.0-4.8); ABS Monocytes 0.6 10^3/ul (0-0.8); ABS Neutrophils 2.6 10^3/ul (1.5-7.7); Eosinophil % 3.9 %; Hematocrit 41 % (35-47); Hemoglobin 13.6 g/dL (12.0-16.0); Lymphocyte % 39.3 %; Mean Corpuscular HGB Conc 33 g/dL (31-36); Mean Corpuscular Hemoglobin 29 pg (27-31); Mean Corpuscular Volume 86 fL (80-97); Mean Platelet Volume 9.4 fL (7.4-10.4); Nucleated Red Blood Cells % 0.1; Platelet Count 214 10^3/uL (150-450); Red Blood Count 4.72 10^6 /uL (3.70-4.87); Red Cell Distribution Width 14 % (10-15); White Blood Count 5.8 10^3/uL (3.5-10.8)
[2018-08-12 05:08] LABS: Calcium 8.9 mg/dL (8.6-10.3); EGFR African American 86.3 (>60); EGFR Non-African American 71.3 (>60); HDL Cholesterol 67.7 mg/dL; Potassium 3.7 mmol/L (3.5-5.0)
[2018-08-12 05:48] LABS: TSH (Thyroid Stimulating Horm) 1.42 mcIU/mL (0.34-5.60)
[2018-08-12] MEDS ORDERED: Levothyroxine TAB* 125 MCG TAB PO SCH (06:00)
[2018-08-12 08:22] VITALS: BP 128/74
[2018-08-12] MEDS ORDERED: Cyanocobalamin TAB* 500 MCG PO SCH (09:00)
[2018-08-12] MEDS: Clopidogrel TAB* 75 MG PO SCH (10:11)
[2018-08-12 10:35] LABS: Erythrocyte Sed Rate 15 mm/Hr (0-29)
--- NOTE | 2018-08-12 10:58 | ECHO ---
*[facility]* [place] [address] Fax #: [phone] Transthoracic Echocardiogram Patient: Rand Caballero : 1950 Study Date: 08/12/2018 Age: 68 Gender: F HR: 62 bpm Height: 64 in /162.6 cm BSA: 1.92 m^2 Weight: 191.6 lb /87.1 kg BMI: 33 kg/m^2 *Claims Adjuster: * Mikayla Smith RDCS RN *Referring Physician: * Ronen Valiente *Reading Physician: * Garcia Clay MD Indications: TIA. History: Risk factors: Former tobacco use. Obesity. Hypothyroidism. Dyslipidemia. Conclusions Summary: 1. Left ventricle: The cavity size is normal. Wall thickness is mildly increased. Systolic function is normal. The estimated ejection fraction is 55-60%. 2. Mitral valve: There is trace regurgitation. 3. Tricuspid valve: There is trace to mild regurgitation. 4. Pulmonic valve: There is trace regurgitation. 5. No previous echocardiogram available. Study data: Transthoracic echocardiogram. Procedure: Transthoracic echocardiography was performed. Image quality was fair. The study was technically limited due to body habitus and smoking history. Intravenous agitated saline was administered. A bubble study was performed on Images 107 and 108. Complete 2D, spectral Doppler, and color flow Doppler. Patient status: Observation. Patient room number: 442-02. Rhythm: Normal sinus rhythm. Findings Left ventricle: The cavity size is normal. Wall thickness is mildly increased. Systolic function is normal. The estimated ejection fraction is 55-60%. Wall motion is normal; there are no regional wall motion abnormalities. There is no consistent Doppler evidence of clinically significant diastolic dysfunction. Right ventricle: The cavity size is normal. Wall thickness is mildly increased. Systolic function is normal. Left atrium: The atrium is normal in size. Right atrium: The atrium is normal in size. Atrial septum: No defect or patent foramen ovale is identified. Bubble study was negative Mitral valve: The leaflets are mildly thickened. There is no evidence of stenosis. There is trace regurgitation. Aortic valve: The valve is trileaflet. The leaflets are mildly thickened. There is no evidence of stenosis. There is no regurgitation. Tricuspid valve: The valve is structurally normal. There is no evidence of stenosis. There is trace to mild regurgitation. Pulmonic valve: The valve is structurally normal. There is no evidence of stenosis. There is trace regurgitation. Aorta: Aortic root: The aortic root is appears normal. Ascending aorta: The ascending aorta is not dilated. Aortic arch: The aortic arch is not dilated. Pericardium: There is no pericardial effusion. Pulmonary arteries: Not well visualized. Systolic pressure is within the normal range, estimated to be 28 mm Hg. Systemic veins: Inferior vena cava: The vessel is normal in size. The respirophasic diameter changes are in the normal range (>= 50%). Measurements Left ventricle Value Ref Aortic valve Value Ref LOLIS, LAX 4.1 cm 3.8 - 5.2 Michelle diam, ED 1.8 cm ---- ESD, LAX 2.7 cm 2.2 - 3.5 Peak v, S 1.3 m/sec ---- FS, LAX 34 % 27 - 45 VTI, S 32.6 cm ---- Mid-wall FS 12 % Mean grad, S 4.0 mm Hg ---- PW, ED (H) 1.2 cm 0.6 - 0.9 Peak grad, S 7.0 mm Hg ---- E', lat michelle, TDI (L) 4.9 cm/sec >=10.0 LVOT/AV, VTI ratio 0.66 --- - E/e', lat michelle, 10 TDI Mitral valve Value Ref E', med michelle, TDI (L) 3.7 cm/sec >=7.0 Peak E 0.5 m/sec --- - E/e', med michelle, 14 Peak A 1.01 m/sec ---- TDI Decel time 370 ms ---- E', avg, TDI 4.3 cm/sec Peak E/A ratio 0.5 ---- E/e', avg, TDI 12 <=14 Pulmonic valve Value Ref LVOT Value Ref Peak v, S 0.59 m/sec ---- Peak linda, S 1.02 m/sec Peak grad, S 1.0 mm Hg ---- VTI, S 21.5 cm Mean grad, S 2 mm Hg Tricuspid valve Value Ref Peak RV-RA grad, S 25 mm Hg ---- Ventricular septum Value Ref Max TR linda 2.5 m/sec ---- IVS, ED (H) 1.2 cm 0.6 - 0.9 Aortic root Value Ref Right ventricle Value Ref Root diam 3.1 cm <4.1 LOLIS, LAX 3.2 cm LOLIS minor ax, A4C 3.3 cm 1.9 - 3.5 Ascending aorta Value Ref mid AAo AP diam, S 3.4 cm ---- Pressure, S 28 mm Hg Aortic arch Value Ref Left atrium Value Ref Arch diam 2.4 cm ---- AP dim, ES 3.00 cm 2.70 - 3.80 Decending aorta Value Ref ML dim, A4C 4.0 cm Shalom peak linda 0.59 m/sec ---- SI dim, A4C 4.3 cm Vol/bsa, ES, 1-p 20 ml/m^2 11 - 40 Pulmonary artery Value Ref A4C Pressure, S 28.0 mm Hg ---- Vol/bsa, ES, A/L 17 ml/m^2 16 - 34 Inferior vena cava Value Ref Right atrium Value Ref Diam 1.0 cm ---- ML dim, ES, A4C 3.6 cm 2.6 - 4.4 SI dim, ES, A4C 5.0 cm 3.4 - 5.3 Estimated RAP 3 mm Hg Legend: (L) and (H) darren values outside specified reference range. Prepared and electronically signed by Garcia Clay MD 08/12/2018 10:57
--- NOTE | 2018-08-12 13:41 | CONS ---
NEUROLOGY CONSULTATION NOTE: DATE OF CONSULT: 08/12/18 CONSULTING PROVIDER: Dr. Valiente. REASON FOR CONSULT: Transient episode of memory loss, trouble speaking, confusion. CHIEF COMPLAINT: "I lost track of time yesterday." HISTORY OF PRESENT ILLNESS: Mrs. Caballero is a 68-year-old right-handed female who was staining her back porch yesterday when suddenly she developed symptoms of confusion. The patient stated that she had coffee in the morning and felt dehydrated thereafter. She was outside under the sun for at least 2 hours. She had plans to go bike riding with a friend. Her daughter called approximately at 12 p.m. and told her mother that she had 14 stitches. Given the concerning news, the patient developed sudden onset of confusion, inability to communicate, and her daughter Ronna thought there was something wrong. Ronna went to go see her mother immediately and she noticed that the patient was slightly disoriented. She did not recognize where she was. She was questioning why there are certain boxes placed in her home. She did not recognize Ronna's vehicle. The patient does not recall this incident. Ronna rushed her mother to [place] where her symptoms completely resolved at approximately 12:45. Time of onset of symptoms was approximately 12:20. During the event, the patient continued to look at her phone to see what she was doing earlier on the day. The patient stated that she developed a mild headache following this event. The headache was nonspecific, holocephalic, 3/ 10 in severity, not associated with any photophobia or phonophobia. She did not have any nausea. The patient is completely symptomatic at this time. She was transferred from [place] to [facility] for possible TIA. NIH stroke scale is 0. The patient did have some void and thinking of dreams following the event. She had like a abby vu-like phenomenon. PAST MEDICAL HISTORY: Hypothyroidism, dyslipidemia, vitamin B12 deficiency, menopause. PAST SURGICAL HISTORY: Left total knee replacement. MEDICATIONS: 1. Cyanocobalamin 500 mcg p.o. daily. 2. Estradiol 10 mcg daily. 3. Levothyroxine 125 mcg p.o. daily. 4. Atorvastatin 10 mg p.o. daily. FAMILY HISTORY: Her father is due to cardiovascular disease. He had hypertension. Her mother lived until she was 84, she had a history of COPD. SOCIAL HISTORY: The patient quit smoking 1 year ago. She smoked for approximately 20 years. She drinks alcohol occasionally 1-3 times a week. 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 REVIEW OF SYSTEMS: A 14-point review of systems was obtained and otherwise negative except for what was mentioned in the HPI. PHYSICAL EXAM: Vital Signs: Temperature of 97.9, pulse of 64, respiratory rate of 14, oxygen saturation of 94%, blood pressure of 128/74. General: Well- nourished, well-developed female in no acute distress. Head: Atraumatic, normocephalic without any obvious abnormality. Eyes: Conjunctivae/corneas are clear. Neck: Supple and symmetrical. No carotid bruit. No lymphadenopathy. Lungs: Clear to auscultation bilaterally, nonlabored bleeding. Cardiovascular : Regular rate and rhythm with normal S1 and S2. Extremities: Normal range of motion with no cyanosis. Skin: No skin lesions or lacerations. Psych: Affect is broad and normal mood. Easy to establish rapport. Neurological Examination: Mental status: Awake, alert, and oriented to person, place, time, and general circumstances. Speech and language including expression, naming, repetition, and comprehension were assessed and found to be normal. Cranial Nerves: Normal to confrontation testing bilaterally. Pupils were mid range and reactive. Extraocular muscles are intact. Sensation is intact in the forehead, cheeks, and jaw regions bilaterally. There is no facial droop. There is no facial symmetry when smiling. She is able to hear throughout the history process. Symmetrical palate elevation. Normal strength against shoulder resistance. Tongue is symmetric and midline with no atrophy or fasciculation. Motor Examination: No abnormal movements or pronator drift. Normal bulk and tone throughout. She has 5/5 strength in the upper and lower extremities bilaterally. Reflexes right/left: Brachioradialis 2/2, biceps 2/2, triceps 2/2 , patella 2/2, ankles 1/1, and plantar flexor/flexor. Sensation is intact to light touch throughout. Coordination normal, [id number] and rapid alternating movement. Gait and station narrow based, normal stance. DIAGNOSTIC STUDIES/LAB DATA: WBC 5.8, hemoglobin of 13.6, hematocrit of 41, platelet count of 214,000. Sodium of 139, potassium 3.7, chloride of 106, BUN of 16, creatinine is 0.8, TSH is 1.42. LDL is 103, cholesterol is 193, triglycerides 114. MRI of the brain without contrast showed evidence of small nonspecific chronic small vessel ischemic disease mostly seen on the left hemisphere. MRA head and neck were unremarkable. No evidence of large vessel occlusion or internal carotid artery stenosis. A transthoracic echo was completed on 08/11/18, which showed normal ejection fraction with no PFO. Ejection fraction is 55% to 60%. ASSESSMENT AND RECOMMENDATIONS: Mrs. Rand Caballero is a 68-year-old female who presented with an episode of transient amnesia associated with confusion. She completely recovered approximately 30 to 45 minutes after this event. I suspect the patient has a transient global amnesia with triggering factors including strenuous activity and dehydration. Other differential diagnosis that cannot be entirely excluded would be transient ischemic attack ( risk factors: age, dyslipidemia), but that is low on the differential since she had no lateralizing symptoms except amnestic like behavior. I do not suspect she had any seizures as she has no risk factors for epilepsy. There is a pending EEG. Otherwise, I prefer to continue the patient on Plavix 75 mg daily and atorvastatin 10 mg daily. NIH stroke scale is 0. The patient does not require any PT/OT/CRUSHER SCREEN REPAIRER evaluation treatment since she is asymptomatic. The recurrence rate for transient global amnesia is approximately 40% during the lifespan. I recommend followup with Neurology in 6 weeks. We will arrange a followup at the [facility]. [id number]/JASON #: [id number] DEL
--- NOTE | 2018-08-12 16:07 | EEG ---
ELECTROENCEPHALOGRAPHY: DATE OF SERVICE: 08/12/18 DATE READ: 08/12/18 ORDERED BY: Ronen Valiente MD INDICATION: The patient is a 68-year-old female with an episode of transient global amnesia. This E EG was requested to evaluate for epileptiform abnormalities or electrographic seizures. MEDICATIONS: 1. Plavix. 2. Vitamin B12. 3. Lovenox. 4. Lipitor. 5. Synthroid. CLINICAL STATE: Awake and drowsy. REPORT: The waking background showed appropriate organization with clearly defined anterior-posterio r voltage and frequency gradients. There was a well-defined, but low voltage posterior dominant rhyt hm of 9 Hz. This was seen symmetrically and showed normal reactivity. Anteriorly, there was an expe cted pattern of lower voltage, irregular, mixed faster frequencies. Attenuation of the occipital rhy thm accompanied drowsiness. There were sharply contoured arciform waves in the temporal region consi stent with wicket waves. Hyperventilation and photic stimulation were not performed. Single electro de EKG showed a normal sinus rhythm with a rate of 60 beats per minutes. Throughout the recording, t here were no epileptiform discharges or electrographic seizures. CLINICAL IMPRESSION: This is a normal awake and drowsy EEG. A normal interictal EEG does not exclud e or support the diagnosis of epilepsy. Clinical correlation is recommended. [id number]/[facility] #: [id number]
--- NOTE | 2018-08-12 22:04 | DS ---
CC: TISH Granger * DISCHARGE SUMMARY: DATE OF ADMISSION: 08/11/18 DATE OF DISCHARGE: 08/12/18 PRIMARY CARE PROVIDER: TISH Granger in [place]. PRIMARY DIAGNOSIS: Suspected transient global amnesia. SECONDARY DIAGNOSES: Include: 1. Hypothyroidism. 2. Hyperlipidemia. 3. Vitamin B12 deficiency. MEDICATIONS AT DISCHARGE: 1. Plavix 75 mg daily. Please note the addition of Plavix to home medications. 2. Atorvastatin 10 mg in the evening. 3. Vitamin B12 500 mcg daily. 4. Estradiol 10 mcg twice a week vaginally. 6. Levothyroxine 125 mcg in the morning. PERTINENT LABORATORY DATA: ESR 15. Troponin I 0.00. TSH is 1.42. Total cholesterol 193, LDL 103, HDL 67.7. CONSULTATIONS DURING THE COURSE OF HOSPITAL STAY: Neurology. PERTINENT IMAGING STUDIES: 1. MRI of brain. No acute intracranial abnormality. Age related atrophy and mild chronic small vessel ischemic disease. 2. Head MRA: Normal brain MRA. 3. Neck MRA: Mildly stenotic left common carotid artery, otherwise normal neck MRA. 4. Transthoracic echocardiogram: Impression: Left cavity size is normal, wall thickness is mildly increased, systolic function is normal with estimated LVEF of 55% to 60%, trace MR, trace TR, trace pulmonic regurgitation. 5. EEG is normal awake EEG. HISTORY OF PRESENT ILLNESS AND HOSPITAL COURSE: A 68-year-old female with past medical history as outlined in history of present illness, on day of admission presented to the hospital after a confusional episode at home where she was talking with paraphasic errors and had nonsense sentences, did not recognize things she was familiar with, including her daughter's new car, lasted for between 30 and 45 minutes, presented to [facility] where she was transferred to [facility] and then [facility]. Aforementioned testing above was normal including MRI of the brain and MRA head and neck, transthoracic echocardiogram and an EEG. She was seen and consulted with Neurology who felt the most likely diagnosis is transient global amnesia, although TIA is in the differential, although much less likely at this point. There is an inability to completely rule out TIA and the patient was ultimately discharged on Plavix. She should follow up with Neurology in approximately 6 weeks, the number was given to the patient. At that time of discharge, she was not back to her baseline as she had been after the confusion with a brief self- limited confusional episode. She was in agreement with plan. Follow up please: 1. Please ensure patient follows up in 6 weeks with [facility] Neurology. 2. No other specific labs or vitals are being followed. Reasons for return to the hospital include but not limited to recurrent or worsening symptoms including confusion and weakness, paresthesias, changes in vision, nausea and vomiting, lightheadedness, loss of consciousness, near loss consciousness, fever, chills and night sweats, inability to obtain or tolerate medication, bleeding from any source discussed at length with the patient and her daughter. They acknowledged understanding. TIME SPENT: Greater than 1 hour spent at discharge with the patient, greater than half was spent [id number] with the patient. [id number]/[facility] #: [id number] DEL
[2018-08-16 09:35] LABS: Albumin 3.2 g/dL (3.4-4.7); Gamma Globulin 1.4 g/dL (0.6-1.6); Total Protein(PEP) 6.8 g/dL (6.3 - 7.9)
--- NOTE | 2018-08-26 11:07 | DS ---
Addendum to dictated discharge summary: Disposition on discharge: Home Condition on Discharge: Good
== END 2018-08-12 17:45 | disposition home or self-care (01) ==
LOC: ED 19:17 → MEDTELE 20:20
PROVIDERS: ADMIT Internal Medicine; ATTEND Internal Medicine
DX: R41.3 Other amnesia (principal); R41.0 Disorientation, unspecified; R41.82 Altered mental status, unspecified; E03.9 Hypothyroidism, unspecified; E78.5 Hyperlipidemia, unspecified; E53.8 Deficiency of other specified B group vitamins; Z79.01 Long term (current) use of anticoagulants; Z79.899 Other long term (current) drug therapy; I65.22 Occlusion and stenosis of left carotid artery; G31.9 Degenerative disease of nervous system, unspecified; Z88.8 Allergy status to other drugs, medicaments and biological substances; Z87.891 Personal history of nicotine dependence
CPT/HCPCS: 36415; 70544; 70547; 70551; 80048; 80061; 84155; 84165; 84443; 84484; 85025; 85652; 90472; 93306; 95816; 96372; 99212; 99284; A9270-GY; G0378; G0463; J1650

== ENCOUNTER 2019-02-12 14:11 | Emergency (ER) | payer MEDICARE, BC ==
--- OUTSIDE RECORDS SUMMARY | 2019-02-12 14:27 | XMS REPORT | Continuity of Care Document ---
:1950 External Reference #:[id number] Author Name Maya Hanley PA Address [address] [place] [address] Care Team Providers Name Role Phone Liam Mckay DR Care Team Information Net Programmer [phone] Problems Active Problems Provider Date Vitamin D deficiency Bjorn Salcedo DO Onset: 03/05/2010 Hypothyroidism Bjorn Salcedo DO Onset: 05/06/2004 Female climacteric state Bjorn Salcedo DO Onset: 05/06/2004 Mixed hyperlipidemia Bjorn Salcedo DO Onset: 05/06/2004 Social History Type Date Description Comments Sex Unknown Tobacco Use Start: Unknown End: Unknown Former Cigarette Smoker Quit 09/2017 Smoking Status Reviewed: 06/17/17 Former Cigarette Smoker Quit 09/2017 ETOH Use Occasionally consumes alcohol Allergies, Adverse Reactions, Alerts Active Allergies Reaction Severity Comments Date Acular 06/12/2014 Medications Active Medications SIG Qnty Indications Ordering Provider Date Vitamin B Complex 1 by mouth Ankur Moreno, 11/11/2018 Tablets every day DO Levothyroxine Sodium 1 by mouth 90tabs E03.9 Ankur Moreno, 06/17/2017 125mcg every day DO Tablets Vitamin D 1 by mouth E55.9 Bjorn Salcedo, 05/08/2015 1000Unit Tablets every day DO Atorvastatin Calcium Take 1 Tablet 90tabs E78.2 Ankur Moreno, 04/19/2014 10mg Daily DO Tablets Estradiol 10 mcg bid Unknown History Medications Amoxicillin/Clavulanate 1 by mouth 20tabs R19.7 Josh 11/11/2018 - Potassium twice a day DO Ankur 11/21/2018 875-125mg Tablets x 10 days Immunizations CPT Code Status Date Vaccine Reaction Lot # [id number] Given 12/14/2018 Fluzone Highdose Age 65 And Over Preservative & Antibiotic Free Q2039 Given 12/21/2017 Flu Vaccine NOS 25993 Given 06/17/2017 Pneumococcal 23 Immunization [id number] Adult Or Immunosuppressed Patient 13061 Given 01/29/2017 Fluzone Highdose Age 65 And [facility] [place] [address] Given 01/15/2016 Fluzone Highdose Age 65 And Given At Pharmacy Over Preservative & RA/ Antibiotic Free 70891 Given 12/19/2015 Prevnar 13 Pneumococal Im inj completed [id number] Conjugate Vaccine Q2035 Given 01/03/2015 Afluria Imunization Given At Pharmacy /JAMUL 48473 Given 01/03/2015 Zoster (Zostavax) Given At Pharmacy /JAMUL 62898 Given 03/03/2013 Tdap (Adacel) Ages 7 And RECEIVED AT ER IN [facility] [place] WHEN PT CUT FINGER. 33263 Given 12/06/2012 Afluria Or Fluvirin Flu Vac Intramuscular 73536 Given 12/07/2011 Afluria Or Fluvirin Flu Vac Intramuscular 05221 Refused 12/29/2018 Shingrix (Shingles) Zoster Vaccine HZV, is on waiting list Recombinant, Subunit, Adj 12753 Refused 12/21/2017 Influenza Vac, Quadrivalent, Split, 0.5mL Dosage, Im Use Vital Signs Date Vital Result Comment 12/29/2018 9:01am Weight 196.00 lb Heart Rate 76 /min BP Systolic 130 mmHg BP Diastolic 78 mmHg Respiratory Rate 18 /min Height 64 inches 5'4" BMI (Body Mass Index) 33.6 kg/m2 11/11/2018 10:45am Body Temperature 99.3 F Weight 188.00 lb Heart Rate 72 /min BP Systolic 132 mmHg BP Diastolic 70 mmHg Respiratory Rate 18 /min Height 64 inches 5'4" BMI (Body Mass Index) 32.3 kg/m2 Results Test Acquired Date Facility Test Result H/L Range Note Lipid Treatment 12/22/2018 [facility] Cholesterol 174 mg/dL 50-199 1 Triglycerides 100 mg/dL 30-200 HDL 62 mg/dL 35-85 2 Chol/ HDL Ratio 2.8 ratio Low 3.7-5.6 VLDL 20 mg/dL 2-29 LDL (Calc) 92 mg/dL 20-99 3 Alt 15 U/L 3-42 Ast 17 U/L 8-42 Basic (BMP) 12/22/2018 [facility] Sodium 139 mmol/L 135-146 4 Potassium 4.4 mmol/L 3.5-5.2 Chloride# 103 mmol/L 97-110 5 Carbon Dioxide 29 mmol/L 24-34 Glucose 86 mg/dL 70-105 BUN 17 mg/dL 6-26 Creatinine 0.7 mg/dL 0.5-1.4 Calcium 8.7 mg/dL 8.5-10.5 6 Female Egfr 89 >60 7 Male Egfr 98 >60 8 Anion Gap 7 mmol/L 5-15 9 CBC with Auto Diff-fcmg 11/11/2018 [facility] WBC 4.4 K/uL 4.1-11.0 RBC 5.21 M/uL 4.00-5.40 Hemoglobin 15.4 gm/dL 12.0-16.0 Hematocrit 46.0 % 36.0-47.0 MCV 88.3 fL 80.0-97.0 MCH 29.6 pg 27.0-32.0 MCHC 33.6 g/dL 32.0-36.0 RDW 14.1 % 11.5-14.5 PLT Count 237 K/ul 140-400 MPV 9.9 FL 7.1-10.7 Neutrophil 51.2 % 35.0-75.0 Lymphocyte 28.7 % 16.0-52.0 Monocyte 16.9 % High 2.0-10.0 Eosinophil 2.2 % 0.0-5.0 Basophil 1.0 % 0.0-4.0 Abs Neutrophils 2.3 K/uL 2.1-8.0 Abs Lymphocytes 1.3 K/uL 0.8-5.5 Abs Monocytes 0.7 K/uL 0.1-1.0 Abs Eosinophils 0.1 K/uL 0.0-0.5 Abs Basophils 0.0 K/uL 0.0-0.3 Comprehensive Met Panel-[facility] 11/11/2018 [facility] Sodium 138 mmol/L 135- 146 10 Potassium 4.2 mmol/L 3.5-5.2 Chloride# 102 mmol/L 97-110 11 Carbon Dioxide 26 mmol/L 24-34 Calcium 9.4 mg/dL 8.5-10.5 12 Glucose 89 mg/dL 70-105 BUN 12 mg/dL 6-26 Creatinine 0.8 mg/dL 0.5-1.4 Total Protein 7.1 g/dL 6.0-8.0 Albumin 4.3 g/dL 3.6-4.9 Globulin 2.8 g/dL 2.0-3.5 A/G Ratio 1.5 Ratio 1.0-2.2 Total Bilirubin 0.3 mg/dL 0.1-1.3 Alkaline Phosphatase 53 U/L 24-140 Alt 19 U/L 3-42 Ast 24 U/L 8-42 Anion Gap 10 mmol/L 5-15 13 Female Egfr 79 >60 14 Male Egfr 93 >60 15 1 Dec lab order SCHEDULE 1 WEEK PRIOR TO NEXT VISIT 2 Per NCEP ATP III Guidelines: Results lower than 40 mg/dL are suggestive of increased risk for coronary artery disease. Results > or = to 60 mg/dL are considered a negative risk factor. 3 Per NCEP ATP III Guidelines: Normal Population <130 Patients with medical conditions: CHD/DM Optimal: <100 Borderline high: 130-159 High: 160-189 Very high: >189 4 Updated reference range on new analyzer 5 Updated reference range on new analyzer 6 Updated reference range 06-15-2018 7 Concerning GFR Guidelines for Americans: Normal function or mild renal disease, if clinically at risk: >/= 60 mL/min Moderately decreased: 30-59 Severely decreased: 15-29 Renal failure: <15 There is reduced accuracy above 60ml/min/1.73 m squared, but the numeric value may be clinically useful in the near 60 range 8 Concerning GFR Guidelines: Normal function or mild renal disease, if clinically at risk: >/= 60 mL/min Moderately decreased: 30-59 Severely decreased: 15-29 Renal failure: <15 There is reduced accuracy above 60ml/min/1.73 m squared, but the numeric value may be clinically useful in the near 60 range Glomerular Filtration Rate (GFR) is estimated based on the CKD-EPI equation, which assumes a steady state for [...] drugs that are excreted by the kidneys. 9 Updated Reference Range 10 Updated reference range on new analyzer 11 Updated reference range on new analyzer 12 Updated reference range 06-15-2018 13 Updated Reference Range 14 Concerning GFR Guidelines for Americans: Normal function or mild renal disease, if clinically at risk: >/= 60 mL/min Moderately decreased: 30-59 Severely decreased: 15-29 Renal failure: <15 There is reduced accuracy above 60ml/min/1.73 m squared, but the numeric value may be clinically useful in the near 60 range 15 Concerning GFR Guidelines: Normal function or mild renal disease, if clinically at risk: >/= 60 mL/min Moderately decreased: 30-59 Severely decreased: 15-29 Renal failure: <15 There is reduced accuracy above 60ml/min/1.73 m squared, but the numeric value may be clinically useful in the near 60 range Glomerular Filtration Rate (GFR) is estimated based on the CKD-EPI equation, which assumes a steady state for [...] drugs that are excreted by the kidneys. Procedures Date Code Description Status 12/28/2018 [id number] Mammogram Completed 06/21/2017 [id number] Bone Mineral Density Test Completed 06/21/2017 [id number] Mammogram Completed 05/09/2015 [id number] Colonoscopy Completed 12/07/2007 [id number] Bone Mineral Density Test Completed 06/02/2005 899346582 Bone Mineral Density Test Completed Medical Devices Description No Information Available Encounters Type Date Location Provider Dx Diagnosis Office Visit 11/11/2018 [facility] Maya Hanley PA R19.7 Diarrhea, unspecified 10:45a Z68.32 Body mass index (BMI) 32.0-32.9, adult Assessments Date Code Description Provider 12/29/2018 E78.2 Mixed hyperlipidemia Maya Hanley PA 12/29/2018 E03.9 Hypothyroidism, unspecified Maya Hanley PA 12/29/2018 G45.4 Transient global amnesia Maya Hanley PA 12/29/2018 Z68.33 Body mass index (BMI) 33.0-33.9, adult Maya Hanley PA 12/22/2018 E78.2 Mixed hyperlipidemia Maya Hanley PA 12/22/2018 E78.2 Mixed hyperlipidemia Schedule, Laboratory 12/22/2018 E78.2 Mixed hyperlipidemia [facility] 11/11/2018 R19.7 Diarrhea, unspecified Maya Hanley PA 11/11/2018 R19.7 Diarrhea, unspecified Maya Hanley PA 11/11/2018 Z68.32 Body mass index (BMI) 32.0-32.9, adult Maya Hanley PA 11/11/2018 R19.7 Diarrhea, unspecified Schedule, Laboratory 11/11/2018 R19.7 Diarrhea, unspecified [facility] Plan of Treatment Future Appointment(s):06/22/2019 8:25 am - Schedule, Laboratory at [facility]2019 9:00 am - Maya Hanley PA at [facility]12/29/2018 - Maya Hanley PAE78.2 Mixed hyperlipidemiaNew Labs:Lipid Treatment, Scheduled: 06/22/19Basic (BMP), Scheduled: 06/22/19Comments:Excellent controlContinue current treatmentFollow up :6 months labs 1 week ohtpxH89.9 Hypothyroidism, unspecifiedNew Labs:TSH, Scheduled: 06/22/19Comments:Will continue current doseG45.4 Transient global amnesiaComments:History Transient global amnesiadoing well without further symptomsWill refer to neuro as she never had f/u as suggested by hospitalReferral:Juan Manuel Rob,Z68.33 Body mass index (BMI) 33.0-33.9, adult Functional Status Description No Information Available Mental Status Description No Information Available Referrals Refer to Reason for Referral Status Appt Date Juan Manuel Rob Transient global amnesia Created [address] [facility] Address,[place] [address] [phone]
[2019-02-12 15:00] VITALS: BP 142/86
--- NOTE | 2019-02-12 16:33 | UC ---
Skin Complaint HPI - HPI Summary HPI Summary: Patient is 69 year old female, who present today to the urgent care with right sided chest rash since yesterday. She reports burning and pain right side, with rash today. Noticed a few small vesicles on the lateral aspect of her right breast Denies any fever, chills, cough chest pain or shortness of breath . Denies any abdominal pain , nausea or vomiting , diarrhea or constipation. - History of Current Complaint Chief Complaint: UCSkin Time Seen by Provider: 02/12/19 16:17 Stated Complaint: SKIN COMPLAINT Hx Obtained From: Patient Pain Intensity: 4 - Allergy/Home Medications Allergies/Adverse Reactions: Allergies Allergy/AdvReac Type Severity Reaction Status Date / Time ketorolac [From Acular] Allergy Severe unspecified Verified 02/12/19 15:00 hives NSAIDS (Non-Steroidal Allergy Severe Hives Verified 02/12/19 15:00 Anti-Inflamma PMH/Surg Hx/FS Hx/Imm Hx - Additional Past Medical History Additional PMH: Past Medical History : Hypothyroidism Past Surgical History: Right knee meniscus surgery in 2015 Family History : non contributory Social History : Weekly alcohol, former smoker, no drug use. Previously Healthy: Yes - Surgical History Surgical History: Yes Surgery Procedure, Year, and Place: right knee meniscus repair- [facility] 08/14/15 - Family History Known Family History: Positive: Non-Contributory Negative: Diabetes - Social History Alcohol Use: Weekly Substance Use Type: None Smoking Status (MU): Former Smoker When Did the Patient Quit Smoking/Using Tobacco: 09/2017 - Immunization History Most Recent Influenza Vaccination: 2018 Most Recent Pneumonia Vaccination: 2014 Review of Systems All Other Systems Reviewed And Are Negative: Yes Constitutional: Positive: Negative Skin: Positive: Rash Eyes: Positive: Negative ENT: Positive: Negative Respiratory: Positive: Negative Cardiovascular: Positive: Negative Gastrointestinal: Positive: Negative Genitourinary: Positive: Negative Motor: Positive: Negative Neurovascular: Positive: Negative Musculoskeletal: Positive: Negative Neurological: Positive: Negative Psychological: Positive: Negative Is Patient Immunocompromised?: No Physical Exam - Summary Physical Exam Summary: Vital Signs Reviewed: Yes A+Ox3, no distress Eyes: Conjunctiva Clear ENT: Hearing grossly normal neck: supple Respiratory: Positive: No respiratory distress, No accessory muscle use Cardiovascular: skin color reflect adequate perfusion Musculoskeletal Exam: YATES x 4 without difficulty Neurological: Positive: Alert, ambulatory without difficulty Psychological: Positive: Normal Response To Family Skin: Positive: Vesicles/follicles -erythematous noted on the lateral aspect of the right breast. No drainage, no crusting. Tender to palpate. There is no fluctuation Triage Information Reviewed: Yes Vital Signs: Initial Vital Signs Temp 98.3 F 02/12/19 14:56 Pulse 64 02/12/19 14:56 Resp 16 02/12/19 14:56 BP 142/86 02/12/19 14:56 Pulse Ox 100 02/12/19 14:56 Vital Signs Reviewed: Yes Course/Dx - Course Course Of Treatment: During the visit today we discussed that it could possibly early shingles versus some folliculitis. Given the burning and the pain and the pattern, plan to treat it with Valtrex. I will also give her topical antibiotic to apply on it. - Differential Diagnoses - Skin Complaint Differential Diagnoses: Other - Folliculitis - Diagnoses Provider Diagnosis: Shingles Discharge ED - Sign-Out/Discharge Documenting (check all that apply): Patient Departure All imaging exams completed and their final reports reviewed: No Studies - Discharge Plan Condition: Stable Disposition: HOME Prescriptions: Mupirocin 2% CREAM* [Bactroban 2% CREAM*] 1 applic TOPICAL BID 7 Days #1 tube ValACYclovir (*) [Valtrex 1 GM(*)] 1 gm PO TID 7 Days #21 tab Patient Education Materials: Shingles (ED) Referrals: Maya Hanley PA [Primary Care Provider] - 3 Days Additional Instructions: Please start taking the medication as prescribed to the pharmacy . Follow up with your primary care doctor in 2 - 3 days. Patients blood pressure slightly high in Urgent care today , plan follow up with PCP for better control Return to Urgent care / ER if symptoms get worse. - Billing Disposition and Condition Condition: STABLE Disposition: Home
== END 2019-02-12 17:00 | disposition home or self-care (01) ==
LOC: UCCORT 14:11
DX: B02.9 Zoster without complications (principal); Z87.891 Personal history of nicotine dependence; Z88.6 Allergy status to analgesic agent
CPT/HCPCS: 99212; G0463

== ENCOUNTER 2021-04-17 07:00 | Observation (INO) ==
[~2021-04-17 07:00] MED LIST changes: -Acetaminophen IV 1GM/100ML * 1,000 MG/100 ML VIAL IVPB ONE; +Buffered Lidocaine 1% SYRIN 1 ml INTRADERM ONE; -Buffered Lidocaine 1% SYRIN* 1 ML/SYRINGE INTRADERM ONE; -Dexamethasone TAB* 4 MG PO ONE; +Famotidine IV 10 MG/ML 2 ml VIAL (20 mg) IV ONE; -Famotidine IV* 10 MG/ML 2 ML (20 mg) IV ONE; -Gabapentin CAP(*) 300 MG PO ONE; +Lactated Ringers 1000 ml BAG 1,000 ML IV SCH; -Tranexamic Acid 1,000 MG in NS 0.9% 50 ML* (outpatient use) IV SCH
[2021-04-17] MEDS ORDERED: ceFAZolin 2 GM PREMIX 2 GM/50 ML BAG ONE (07:19)
[2021-04-17] MEDS ORDERED: Famotidine IV 10 MG/ML 2 ml VIAL (20 mg) ONE (07:19)
[2021-04-17] MEDS ORDERED: Midazolam 5 mg/5 ml VIAL 1 mg/ml 5 ml VIAL (5 mg) ONE (08:30)
[2021-04-17] MEDS ORDERED: fentaNYL 100 mcg/2 ml 50 MCG/ML VIAL ONE (08:30)
[2021-04-17] MEDS ORDERED: ROPIVACAINE 5 MG/ML 30 ML BTL (0.5%) ONE (08:30)
[2021-04-17] MEDS ORDERED: Lidocaine 2% PF 5 ML VIAL ONE ×2 (08:30→09:27)
[2021-04-17] MEDS ORDERED: Ondansetron 4 mg VIAL 2 MG/ML 2 ml VIAL ONE ×2 (09:27→13:38)
[2021-04-17] MEDS ORDERED: Dexamethasone IV 4 MG/ML VIAL 1 ml VIAL ONE (09:27)
[2021-04-17] MEDS ORDERED: Propofol 10 MG/ML 20 ML BTL ONE (09:27)
[2021-04-17] MEDS ORDERED: Acetaminophen IV 1 GM/100ML 100 ML IV ONE (09:27)
[2021-04-17] MEDS ORDERED: Phenylephrine IV 10 MG/ML 1 ml VIAL ONE (09:46)
[2021-04-17] MEDS ORDERED: Bupivacaine 0.5% SDV PF 30ML VIAL ONE (10:26)
[2021-04-17] MEDS ORDERED: Glycopyrrolate IV 0.2 MG/ML 1 ML VIAL ONE ×2 (10:32→11:30)
[2021-04-17] MEDS ORDERED: diPHENhydraMINE 25 mg TAB PO PRN (10:55)
[2021-04-17] MEDS ORDERED: Ondansetron ODT 4 mg TAB 4 MG TAB PO PRN (10:55)
[2021-04-17] MEDS ORDERED: Magnesium Hydroxide LIQ 30 ML UDC PO PRN (10:55)
[2021-04-17] MEDS ORDERED: diPHENhydraMINE IV 50 MG/ML 1 ml VIAL (BENADRYL) IV PRN (10:55)
[2021-04-17] MEDS ORDERED: Lactulose 30 ml UDC PO PRN (10:55)
[2021-04-17] MEDS ORDERED: Ondansetron 4 mg VIAL 2 MG/ML 2 ml VIAL IV PRN ×2 (10:55→11:48)
[2021-04-17] MEDS ORDERED: Naloxone 0.4 mg VIAL 0.4 mg/ml 1 ml VIAL IV PRN (11:48)
[2021-04-17] MEDS ORDERED: HYDROmorphone 1 MG/1 ML SYRINGE IV PRN (11:48)
[2021-04-17] MEDS ORDERED: fentaNYL 100 mcg/2 ml 50 MCG/ML VIAL IV PRN (11:48)
[2021-04-17] MEDS: Lactated Ringers 1000 ml BAG 1,000 ML IV SCH (15:41)
[2021-04-17] MEDS: ceFAZolin 1 GM ADVAN 1 GM in NS 0.9% 50 ML 50 ML IVPB SCH (17:42)
[2021-04-17] MEDS: Magnesium Hydroxide LIQ 30 ML UDC PO SCH (20:10)
[2021-04-18] MEDS: Lactated Ringers 1000 ml BAG 1,000 ML IV SCH (02:37)
[2021-04-18] MEDS: ceFAZolin 1 GM ADVAN 1 GM in NS 0.9% 50 ML 50 ML IVPB SCH ×2 (02:39→09:33)
[2021-04-18 06:12] LABS: Hematocrit 38 % (35-47); Hemoglobin 12.3 g/dL (12.0-16.0); Mean Platelet Volume 9.6 fL (7.4-10.4); Platelet Count 222 10^3/uL (150-450)
[2021-04-18 06:35] LABS: Calcium 8.3 mg/dL (8.6-10.3); Potassium 4.1 mmol/L (3.5-5.0); eGFR CKD-EPI 92.4 (>60)
[2021-04-18] MEDS ORDERED: Scopolamine 1 mg/72hr PATCH TRANSDERM SCH (08:00)
[2021-04-18] MEDS: Magnesium Hydroxide LIQ 30 ML UDC PO SCH (08:08)
[2021-04-18] MEDS ORDERED: Vitamin THERAPEUTIC TAB PO SCH (09:00)
[2021-04-18 11:44] VITALS: BP 174/93
== END 2021-04-18 13:42 | disposition home or self-care (01) ==
LOC: OR 07:00 → SSU 07:00
PROVIDERS: ADMIT Orthopaedic Surgery Adult Reconstructive Orthopaedic Surgery; ATTEND Orthopaedic Surgery Adult Reconstructive Orthopaedic Surgery